=== PATIENT | male | born 1955 | race Caucasian/White ===

== ENCOUNTER 2017-12-22 13:47 | Inpatient (IN) | payer OTHER ==
[~2017-12-22] VITALS: Ht 182.9 cm; Wt 91.9 kg
[2017-12-22] MEDS ORDERED: SODIUM CHLORIDE 0.9% 1000ML 1,000 ML IV SCH (13:53)
--- NOTE | 2017-12-22 13:56 | EMERGENCY ROOM VISIT NOTE ---
History Report prepared by Roger: Cristofer Mckeon Under the Supervision of: Dr. Matthieu Jain D.O. First contact with patient: 13:50 Stated Complaint: CVA SYMPTOMS History of Present Illness The patient is a 62 year old male who presents to the Emergency Room with complaints of stroke like symptoms that the patient has been experiencing for two days. Per EMS, for the past two days the patient has been experiencing worsening facial droop of the right side, as well as poor coordination in the right side. When the patient walks he migrates to the left. He denies any pain, blurred vision, or recent headaches. The patient noted that he recently went to his PCP for muscle pain between his shoulders. He was given Prednisone, but this did not improve his condition. 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 A total of 10 systems reviewed and were otherwise negative. Past Medical & Surgical no past surgeries. Family History noncontributory due to adoption Social History Drug Use: none Marital Status: Housing Status: lives with significant other Current/Historical Medications Scheduled PRN Naproxen (Naprosyn), 1 TAB PO BID PRN for Pain Allergies Coded Allergies: No Known Allergies (Unverified , 12/22/17) Physical Exam Vital Signs Date Time Temp Pulse Resp B/P (MAP) Pulse Ox O2 Delivery O2 Flow Rate FiO2 12/22/17 15:33 65 13 183/104 94 Room Air 12/22/17 14:44 69 23 178/100 97 Room Air 12/22/17 14:17 76 12/22/17 13:54 37.0 79 193/110 99 Room Air 12/22/17 13:53 99 Room Air Physical Exam GENERAL: Patient is awake, alert, and in no acute distress. Patient is resting comfortably and showing no signs of anxiety EYES: The conjunctivae are clear. The pupils are round and reactive. EARS, NOSE, MOUTH AND THROAT: The nose is without any evidence of any deformity. Mucous membranes are moist tongue is midline NECK: The neck is nontender and supple. RESPIRATORY: Normal respiratory effort is noted there is no evidence of wheezing rhonchi or rales CARDIOVASCULAR: Regular rate and rhythm noted there no murmurs rubs or gallops normal S1 normal S2 GASTROINTESTINAL: The abdomen is soft. Bowel sounds are present in all quadrants. Abdomen is nontender MUSCULOSKELETAL/EXTREMITIES: There is no evidence of gross deformity full range of motion is noted in the hips and shoulders SKIN: There is no obvious evidence of any rash. There are no petechiae, pallor or cyanosis noted. NEUROLOGIC: Patient is awake alert and oriented x3. Patient has a right sided facial droop with forehead a sparing noted. Slight drift in the RUE. 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 Strength is symmetric in both lower extremities. Medical Decision & Procedures ER Provider Diagnostic Interpretation: Radiology results as stated below per my review and radiologist interpretation: CHEST ONE VIEW PORTABLE CLINICAL HISTORY: Stroke symptoms. COMPARISON STUDY: No previous studies for comparison. FINDINGS: Lung volumes are normal. No pneumothorax or pleural effusion is noted. Pulmonary vascularity is normal. No airspace opacities are present. Cardiomediastinal silhouette is normal. IMPRESSION: No acute cardiopulmonary findings. Electronically signed by: Edenilson Hughes M.D. 12/22/2017 2:21 PM Dictated Date/Time: 12/22/2017 2:[address] CT DOSE: 614.27 mGy.cm HISTORY: Stroke symptoms. TECHNIQUE: Multiaxial CT images of the head were performed without the use of intravenous contrast. Automated exposure control was utilized for this study. A dose lowering technique was utilized adhering to the principles of ALARA. Comparison: None. Findings: There is a 1 cm defect within the left nasal bone. This is nonspecific but could be due to old trauma or postoperative change. The paranasal sinuses and mastoid air cells are clear. The calvarium and skull base are intact. The ventricles and sulci are within normal limits. There is no mass, hematoma, midline shift, or acute infarct. Impression: No acute intracranial abnormality. Electronically signed by: Cecil Jackson M.D. 12/22/2017 2:25 PM Dictated Date/Time: 12/22/2017 2:20 PM Laboratory Results Test 12/22/17 14:29 12/22/17 14:46 Prothrombin Time 10.0 SECONDS (9.0-12.0) Prothromb Time International Ratio 1.0 (0.9-1.1) Activated Partial Thromboplast Time 23.8 SECONDS (21.0-31.0) Partial Thromboplastin Ratio 0.9 Estimated Average Glucose 272 mg/dl Hemoglobin A1c 11.1 % (4.5-5.6) Magnesium Level 2.0 mg/dl (1.8-2.4) Beta-Hydroxybutyric Acid 1.54 mg/dL (0.2-2.81) Lyme Disease IgG Antibody NEG (NEG) Lyme Disease IgM Antibody NEG (NEG) Urine Color YELLOW Urine Appearance CLEAR (CLEAR) Urine pH 5.0 (4.5-7.5) Urine Specific [place] 1.044 (1.000-1.030) Urine Protein NEG (NEG) Urine Glucose (UA) 3+ (NEG) Urine Ketones NEG (NEG) Urine Occult Blood NEG (NEG) Urine Nitrite NEG (NEG) Urine Bilirubin NEG (NEG) Urine Urobilinogen NEG (NEG) Urine Leukocyte Esterase NEG (NEG) Laboratory results per my review. Medications Administered Medications (Trade) Dose Ordered Sig/Mich Route Start Time Stop Time Status Last Admin Dose Admin Sodium Chloride 1,000 ml @ 50 mls/hr Q20H IV 12/22/17 13:53 12/22/17 20:13 DC 12/22/17 13:53 50 MLS/HR Sodium Chloride 1,000 ml @ 999 mls/hr Q1H1M STAT IV 12/22/17 15:17 12/22/17 16:17 DC 12/22/17 15:17 999 MLS/HR Aspirin (Aspirin Chew) 324 mg NOW STAT PO 12/22/17 16:33 12/22/17 16:34 DC 12/22/17 16:52 324 MG ECG Indication: weakness Rate (beats per minute): 69 Rhythm: normal sinus Findings: no ectopy, other (Diffuse t-wave abnormalities noted) Comparison ECG Date: no prior available Change: Patient's EKG was interpreted by me. ED Course 1348: The patient was evaluated in room B5. A complete history and physical examination were performed. 1353: Ordered 1000 mL @ 50 mL/hr IV. 1530: I discussed the patient's case with - [facility] hospitalist . The patient will be evaluated for further management. Medical Decision Differential diagnosis: Etiologies such as metabolic, infection, hypo/hyperglycemia, electrolyte abnormalities, cardiac sources, intracerebral event, toxicologic, neurologic, as well as others were entertained. Nursing notes reviewed. The patient is a 62-year-old male who presented to the emergency department by ambulance for right-sided weakness. The patient states that he's had a gradual onset over the last few days of right-sided weakness. He states that he's been falling to the left because he's been having weakness on his right side. The patient also noticed some speech difficulty and facial droop today. The patient' s history and physical exam appear to be consistent with a central nervous system process. He has right-sided facial droop with forehead sparing. He also appears to have some involvement of his upper extremity. The patient states he' s been having trouble walking however his strength appears symmetric in his lower extremities. I discussed the patient's laboratory and radiographic studies with him. He was treated with aspirin in the emergency department when CT revealed no acute disease. The patient was assigned to the [facility] hospitalist. They have agreed to evaluate the patient in the emergency department for further management and disposition. Consults Time Called: 1530 Consulting Physician: Dr. Ruel MOREL Hospitalist Returned Call: 1530 I discussed the patient's case with Dr.Kedem Catalina MOREL hospitalist . The patient will be evaluated for further management. Impression Primary Impression: Right sided weakness Additional Impressions: CVA (cerebral vascular accident) Facial droop Diabetes mellitus, new onset Scribe Attestation The scribe's documentation has been prepared under my direction and personally reviewed by me in its entirety. I confirm that the note above accurately reflects all work, treatment, procedures, and medical decision making performed by me. Departure Information Dispostion Being Evaluated By Hospitalist Problem Qualifiers Additional Impressions: CVA (cerebral vascular accident) CVA mechanism: unspecified Qualified Codes: I63.9 - Cerebral infarction, unspecified
--- NOTE | 2017-12-22 14:22 | DIAGNOSTIC IMAGING REPORT ---
CHEST ONE VIEW PORTABLE CLINICAL HISTORY: Stroke symptoms. COMPARISON STUDY: No previous studies for comparison. FINDINGS: Lung volumes are normal. No pneumothorax or pleural effusion is noted. Pulmonary vascularity is normal. No airspace opacities are present. Cardiomediastinal silhouette is normal. IMPRESSION: No acute cardiopulmonary findings. Electronically signed by: Edenilson Hughes M.D. 12/22/2017 2:21 PM Dictated Date/Time: 12/22/2017 2:21 PM
--- NOTE | 2017-12-22 14:26 | DIAGNOSTIC IMAGING REPORT ---
HEAD CT NONCONTRAST CT DOSE: 614.27 mGy.cm HISTORY: Stroke symptoms. TECHNIQUE: Multiaxial CT images of the head were performed without the use of intravenous contrast. Automated exposure control was utilized for this study. A dose lowering technique was utilized adhering to the principles of ALARA. Comparison: None. Findings: There is a 1 cm defect within the left nasal bone. This is nonspecific but could be due to old trauma or postoperative change. The paranasal sinuses and mastoid air cells are clear. The calvarium and skull base are intact. The ventricles and sulci are within normal limits. There is no mass, hematoma, midline shift, or acute infarct. Impression: No acute intracranial abnormality. Electronically signed by: Cecil Jackson M.D. 12/22/2017 2:25 PM Dictated Date/Time: 12/22/2017 2:20 PM
[2017-12-22 14:51] LABS: BASO % 0.4 %; BASO ABS # 0.03 K/uL (0-0.2); EOS % 1.3 %; EOS ABS # 0.11 K/uL (0-0.5); HEMATOCRIT 45.1 % (42-52); HEMOGLOBIN 16.1 g/dL (14.0-18.0); IG# 0.05 K/uL (0.00-0.02); LYMPH % 20.2 %; LYMPH ABS # 1.66 K/uL (1.2-3.4); MEAN CELL VOLUME 86.4 fL (80-100); MEAN CORPUSCULAR HEMOGLOBIN 30.8 pg (25-34); MEAN CORPUSCULAR HGB CONC 35.7 g/dl (32-36); MEAN PLATELET VOLUME 11.2 fL (7.4-10.4); MONO % 5.6 %; MONO ABS # 0.46 K/uL (0.11-0.59); NEUT % 71.9 %; NEUT ABS # 5.89 K/uL (1.4-6.5); PLATELET COUNT 171 K/uL (130-400); RED CELL DISTRIBUTION WIDTH SD 41.1 fL (36.4-46.3)
[2017-12-22 15:01] LABS: PTT PATIENT 23.8 SECONDS (21.0-31.0)
[2017-12-22 15:15] LABS: BLOOD UREA NITROGEN 14 mg/dl (7-18); CALCIUM 8.6 mg/dl (8.5-10.1); CARBON DIOXIDE 28 mmol/L (21-32); CKMB 2.8 ng/ml (0.5-3.6); CREATININE 1.03 mg/dl (0.60-1.40); GLUCOSE 351 mg/dl (70-99); POTASSIUM 3.7 mmol/L (3.5-5.1); SODIUM 134 mmol/L (136-145)
[2017-12-22] MEDS ORDERED: SODIUM CHLORIDE 0.9% 1000ML 1,000 ML IV STA (15:17)
[2017-12-22] MEDS ORDERED: NAPR-1169 PO (15:41)
[2017-12-22] MEDS ORDERED: PHARMACIST DISCHARGE MED REC CONSULT PRN (16:30)
[2017-12-22] MEDS ORDERED: POLYETHYLENE (MIRALAX) 17 GM PACK PO PRN (16:30)
[2017-12-22] MEDS ORDERED: ASPIRIN 81 MG CHEW PO STA (16:33)
--- NOTE | 2017-12-22 17:02 | History and Physical ---
History & Physical Date & Time of Service: Dec 22, 2017 at 16:12 Chief Complaint: Cva Symptoms Primary Care Physician: No Doctor, Assigned History of Present Illness Mr. Larsen is a 62 year old man here with complaints of gait disturbance and "drifting left" x2 days. Today he is having word finding difficulty, weakness on the right, facial droop, and slurred speech. He was given prednisone 12/13 x6 days for a lump and muscle spasm near his spine. He has been taking naproxen for the back pain but it has not helped. He is a patient of Dr. Shaw. ROS Constitutional: no chills, aches, sweats or fever Respiratory: no sob,cough, sputum, or wheezing Cardiac: no chest pain, palpitations, edema, orthopnea or lightheadedness GI: no abdominal pain, nausea, vomiting, diarrhea or constipation : no dysuria or hesitancy Extremities: no joint pain or weakness Skin: no rash All other systems reviewed and negative Pmhx: Raynaud's Family History He is adopted and is unsure of parents history, no significant history in children Social History Smoking Status: Never Smoker Smokeless Tobacco Use: No Alcohol Use: none Drug Use: none Marital Status: Housing status: lives with significant other 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 ) Immunizations History of Influenza Vaccine: No History of Tetanus Vaccine?: Yes Tetanus Immunization Date: Sep 29, 2017 History of Pneumococcal: No Allergies Coded Allergies: No Known Allergies (Unverified , 12/22/17) Home Medications Scheduled PRN Naproxen (Naprosyn), 1 TAB PO BID PRN for Pain Physical Exam Vital Signs Date Time Temp Pulse Resp B/P (MAP) Pulse Ox O2 Delivery O2 Flow Rate FiO2 12/22/17 15:33 65 13 183/104 94 Room Air 12/22/17 14:44 69 23 178/100 97 Room Air 12/22/17 14:17 76 12/22/17 13:54 37.0 79 193/110 99 Room Air 12/22/17 13:53 99 Room Air General: no distress Eyes: left eye lid lag, PERLL Respiratory: chest non tender, clear to auscultation, normal breath sounds, no respiratory distress, no accessory muscle use Cardiac: regular rate and rhythm, no rub or gallop, no murmur, no edema, no jvd GI/: active bowel sounds, no abd pain or tenderness, soft, non distended Extremities: normal range of motion, normal strength equal bilaterally, non tender, area of edema over thoracic spine - not erythematous or warm to touch Neuro/Psych: alert and oriented x 3, normal mood and affect, CN II-XII intact except for CN VII palsy causing facial droop Skin: normal color, dry Diagnostics Laboratory Results Results Past 24 Hours Test 12/22/17 13:53 12/22/17 14:29 12/22/17 14:31 Range/Units White Blood Count 8.20 4.8-10.8 K/uL Red Blood Count 5.22 4.7-6.1 M/uL Hemoglobin 16.1 14.0-18.0 g/dL Hematocrit 45.1 42-52 % Mean Corpuscular Volume 86.4 80-100 fL Mean Corpuscular Hemoglobin 30.8 25-34 pg Mean Corpuscular Hemoglobin Concent 35.7 32-36 g/dl Platelet Count 171 130-400 K/uL Mean Platelet Volume 11.2 7.4-10.4 fL Neutrophils (%) (Auto) 71.9 % Lymphocytes (%) (Auto) 20.2 % Monocytes (%) (Auto) 5.6 % Eosinophils (%) (Auto) 1.3 % Basophils (%) (Auto) 0.4 % Neutrophils # (Auto) 5.89 1.4-6.5 K/uL Lymphocytes # (Auto) 1.66 1.2-3.4 K/uL Monocytes # (Auto) 0.46 0.11-0.59 K/uL Eosinophils # (Auto) 0.11 0-0.5 K/uL Basophils # (Auto) 0.03 0-0.2 K/uL RDW Standard Deviation 41.1 36.4-46.3 fL RDW Coefficient of Variation 13.0 11.5-14.5 % Immature Granulocyte % (Auto) 0.6 % Immature Granulocyte # (Auto) 0.05 0.00-0.02 K/uL Prothrombin Time 10.0 9.0-12.0 SECONDS Prothromb Time International Ratio 1.0 0.9-1.1 Activated Partial Thromboplast Time 23.8 21.0-31.0 SECONDS Partial Thromboplastin Ratio 0.9 Sodium Level 134 136-145 mmol/L Potassium Level 3.7 3.5-5.1 mmol/L Chloride Level 101 98-107 mmol/L Carbon Dioxide Level 28 21-32 mmol/L Anion Gap 5.0 3-11 mmol/L Blood Urea Nitrogen 14 7-18 mg/dl Creatinine 1.03 0.60-1.40 mg/dl Est Creatinine Clear Calc Drug Dose 93.0 ml/min Estimated GFR () 91.1 Estimated GFR (Non- 78.6 BUN/Creatinine Ratio 13.9 10-20 Random Glucose 351 70-99 mg/dl Calcium Level 8.6 8.5-10.1 mg/dl Magnesium Level 2.0 1.8-2.4 mg/dl Total Creatine Kinase 115 39-308 U/L Creatine Kinase MB 2.8 0.5-3.6 ng/ml Creatine Kinase MB Ratio 2.4 0-3.0 Troponin I < 0.015 0-0.045 ng/ml Beta-Hydroxybutyric Acid 1.54 0.2-2.81 mg/dL Bedside Glucose 321 70-99 mg/dl Diagnostic Radiology CHEST ONE VIEW PORTABLE CLINICAL HISTORY: Stroke symptoms. COMPARISON STUDY: No previous studies for comparison. FINDINGS: Lung volumes are normal. No pneumothorax or pleural effusion is noted. Pulmonary vascularity is normal. No airspace opacities are present. Cardiomediastinal silhouette is normal. IMPRESSION: No acute cardiopulmonary findings HEAD CT NONCONTRAST CT DOSE: 614.27 mGy.cm HISTORY: Stroke symptoms. TECHNIQUE: Multiaxial CT images of the head were performed without the use of intravenous contrast. Automated exposure control was utilized for this study. A dose lowering technique was utilized adhering to the principles of ALARA. Comparison: None. Findings: There is a 1 cm defect within the left nasal bone. This is nonspecific but could be due to old trauma or postoperative change. The paranasal sinuses and mastoid air cells are clear. The calvarium and skull base are intact. The ventricles and sulci are within normal limits. There is no mass, hematoma, midline shift, or acute infarct. Impression: No acute intracranial abnormality. CXR normal EKG Normal sinus rhythm Voltage criteria for left ventricular hypertrophy Nonspecific ST and T wave abnormality Abnormal ECG No previous ECGs available Impression Assessment and Plan Mr. Larsen is a 62 year old man here for r/o cva R/o CVA - admit tele - MRI brain combo, MRA head, carotid US, echo - start ASA, statin - permissible htn until CVA r/o - trend cardiac isos - PT/OT, speech - consult neuro - Lyme titers negative Thoracic back pain/edema - MRI thoracic spine - acetaminophen prn Hyperglycemia - BSG over 300 in ED - patient denies history of DM - recently finished course of prednisone - A1c, bsg ac & hs - insulin ss HTN - permissible for now until CVA r/o DVT proph - enoxaprin Resident Physician Supervision Note: Pt evaluated independently. I discussed the case with the GENERAL PRODUCTION WORKER and agree with the findings and plan as documented in the note. Any exceptions or clarifications are listed here: 62 y/o M Hx HTN, likely undx DM - presenting with R sided weakness and facial asym x 2-3 days - symptoms were initially intermittent OE AAO x 3 S1,2 R CTAB NT, ND No CCE + mild R pronator drift - clear R facial weakness limited to lower half P: Admitted with CVA protocol - miryam also R/O Lyme MRI/MRA pending A1C pending and placed on SS HTN meds held due to acute tia/cva Documented By: Matteo Lipscomb Advanced Directives Existing Advance Directive: No Existing Living Will: No Existing Power of Jig Grinder: No Existing Health Care Proxy: No Resuscitation Status FULL RESUSCITATION
--- NOTE | 2017-12-22 17:52 | DIAGNOSTIC IMAGING REPORT ---
MR ANGIOGRAM OF THE BRAIN CLINICAL HISTORY: Strokelike symptoms. COMPARISON STUDY: CT of the brain dated 12/22/2017. TECHNIQUE: 3-D [id number] MR angiography of the intracranial circulation is performed. 3-D tumble views are created and assessed. IV contrast was not administered for this examination. FINDINGS: The internal carotid arteries are widely patent bilaterally, as are the anterior and middle cerebral arteries. The vertebrobasilar system and posterior cerebral arteries are widely patent. The vertebral arteries are codominant. There is no aneurysm, high-grade stenosis, or focal vessel cutoff seen throughout the intracranial circulation. The brain parenchyma is normal as visualized. IMPRESSION: Unremarkable MR angiogram of the brain. Electronically signed by: Sonny Mon M.D. 12/22/2017 5:51 PM Dictated Date/Time: 12/22/2017 5:49 PM
[2017-12-22] MEDS ORDERED: GADAVIST IV PRN (18:30)
--- NOTE | 2017-12-22 19:10 | DIAGNOSTIC IMAGING REPORT ---
MRI OF THE BRAIN WITHOUT AND WITH IV CONTRAST CLINICAL HISTORY: Stroke symptoms. Slurred speech. Difficulty walking. COMPARISON STUDY: Head CT performed earlier today. TECHNIQUE: Utilizing a 1.5 Radha magnet and dedicated coil, multiplanar, multiecho imaging of the brain was performed pre and postcontrast administration. IV administration of 10 mL of Gadavist contrast was uneventful. FINDINGS: Note is made of a 1.3 x 0.5 cm focus of restricted diffusion within the left anterior priscilla consistent with an acute infarct. There is no mass effect or evidence of hemorrhagic conversion. No additional acute infarcts are present. Ventricular system is unremarkable. Basilar cisterns are patent. Flow-voids for the major intracranial vessels are present. There is no intracranial mass or pathologic enhancement. A few suspected old lacunar infarcts are noted. Calvarial signal is maintained. IMPRESSION: Small acute left anterior pontine infarct. No mass effect or evidence for hemorrhagic conversion. Electronically signed by: Edenilson Hughes M.D. 12/22/2017 7:09 PM Dictated Date/Time: 12/22/2017 6:50 PM
[2017-12-22 19:30] VITALS: BP 197/91; PULSE 67; TEMP 37; O2SAT 98; BMI 27.6
--- NOTE | 2017-12-22 19:34 | DIAGNOSTIC IMAGING REPORT ---
ULTRASOUND OF THE CAROTID ARTERIES CLINICAL HISTORY: Stroke. COMPARISON STUDY: No priors. TECHNIQUE: Real-time, grayscale, and color Doppler sonography of the carotid arteries is performed. Images are reviewed in the transverse and longitudinal planes. FINDINGS: Blood pressure in the right arm measures 190/89 and blood pressure in the left arm measures 178/91. The carotid arteries are patent bilaterally and demonstrate antegrade flow. There is minimal atherosclerotic plaque identified. Normal doppler arterial waveforms are seen throughout. Velocity measurements are listed below. Common carotid peak systolic velocity (cm/sec): RIGHT: 112 LEFT: 144 ICA proximal peak systolic velocity (cm/sec): RIGHT: 59 LEFT: 44 ICA mid peak systolic velocity (cm/sec): RIGHT: 53 LEFT: 42 ICA distal peak systolic velocity (cm/sec): RIGHT: 53 LEFT: 47 ICA/CC peak systolic ratio: RIGHT: 0.5 LEFT: 0.3 Antegrade flow was shown in the vertebral arteries. The external carotid arteries are patent. IMPRESSION: 1. There is no sonographic evidence of hemodynamically significant stenosis in the right or left carotid arterial system. 2. Antegrade flow is shown in the vertebral arteries. Electronically signed by: Sonny Mon M.D. 12/22/2017 7:33 PM Dictated Date/Time: 12/22/2017 7:30 PM
[2017-12-22 19:45] VITALS: BP 197/91; PULSE 67; TEMP 37; O2SAT 98
[2017-12-22 20:00] VITALS: BP 179/104; PULSE 66; O2SAT 97
--- NOTE | 2017-12-22 20:10 | DIAGNOSTIC IMAGING REPORT ---
MRI OF THE THORACIC SPINE COMBO CLINICAL HISTORY: Palpable lump overlying the thoracic spine. Difficulty walking. COMPARISON STUDY: No priors. TECHNIQUE: MRI of the thoracic spine is performed utilizing various T1 and T2-weighted sequences in the axial and sagittal planes. Contrast-enhanced sequences were acquired following the IV administration of 10 cc of Gadavist. The examination is modestly degraded by motion artifact. FINDINGS: Vertebral body height and alignment are maintained throughout the thoracic spine. Normal marrow signal intensity is preserved throughout the visualized bony structures. No destructive osseous lesion is seen. A tiny hemangioma is suggested in the body of T11. The transverse and spinous processes are intact as visualized. No significant neural foraminal stenosis is seen throughout the thoracic spine. Minimal degenerative disc desiccation is observed. The disc spaces are maintained. No disc herniation is identified. The thoracic spinal cord is normal in morphology and signal intensity. The conus medullaris terminates at the level of L1. No abnormal enhancement is seen on the postcontrast images. There is a lobulated soft tissue lesion identified within the right paraspinous musculature at T3 to T5. This measures 6.1 x 1.7 x 3.6 cm. This follows fat on all sequences and is consistent with a lipoma. No enhancing lesion is seen. The paraspinous soft tissues are otherwise normal in appearance. The visualized lung parenchyma is grossly unremarkable but not well evaluated by MRI. IMPRESSION: 1. There is no disc herniation, central canal stenosis, or neural foraminal narrowing seen throughout the thoracic spine. 2. The thoracic spinal cord is normal in morphology and signal intensity. 3. No bony abnormality is seen. 4. 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 Dictated: 12/22/2017 6:50 PM Transcribed: 12/22/2017 8:10 PM HEMANT_Landy Electronically signed by: Sonny Mon M.D. 12/22/2017 8:18 PM Dictated Date/Time: 12/22/2017 6:50 PM
[2017-12-22] MEDS ORDERED: GLUCAGON FOR INJ 1 MG VIAL SQ PRN (20:30)
[2017-12-22] MEDS ORDERED: DEXTROSE 50% 50 ML SYR IV PRN (20:30)
[2017-12-22] MEDS ORDERED: GLUCOSE 10 TABS/TUBE PO PRN (20:30)
[2017-12-22] MEDS ORDERED: GLUCOSE 40% GEL 15 GM TUBE PO PRN (20:30)
[2017-12-22] MEDS: ENOXAPARIN 40 MG/0.4 ML SYR SQ SCH (20:57)
[2017-12-22] MEDS: INSULIN ASPART 100 UNITS/ML 3 ML PEN SC SCH (20:58)
[2017-12-22 23:17] LABS: CKMB 1.5 ng/ml (0.5-3.6)
[2017-12-22 23:51] VITALS: BP_SYST 179; BP_SYST 183; BP_DIAS 92; BP_DIAS 95; PULSE 64; TEMP 36.8; O2SAT 98
[2017-12-23] VITALS (10 sets, daily range): BP systolic 140–187; BP diastolic 66–105; PULSE 56–105; TEMP 36.5–37.1; O2SAT 93–99; BMI 28.0
[2017-12-23 06:35] LABS: HEMOGLOBIN A1C 11.1 % (4.5-5.6)
[2017-12-23 06:35] LABS: BASO % 0.6 %; BASO ABS # 0.04 K/uL (0-0.2); EOS % 3.4 %; EOS ABS # 0.24 K/uL (0-0.5); HEMATOCRIT 43.4 % (42-52); HEMOGLOBIN 14.9 g/dL (14.0-18.0); IG# 0.03 K/uL (0.00-0.02); LYMPH % 35.8 %; LYMPH ABS # 2.54 K/uL (1.2-3.4); MEAN CELL VOLUME 87.5 fL (80-100); MEAN CORPUSCULAR HGB CONC 34.3 g/dl (32-36); MEAN PLATELET VOLUME 11.1 fL (7.4-10.4); MONO % 8.7 %; MONO ABS # 0.62 K/uL (0.11-0.59); NEUT % 51.1 %; NEUT ABS # 3.62 K/uL (1.4-6.5); PLATELET COUNT 159 K/uL (130-400); RED CELL DISTRIBUTION WIDTH CV 13.1 % (11.5-14.5); RED CELL DISTRIBUTION WIDTH SD 42.1 fL (36.4-46.3); WHITE BLOOD COUNT 7.09 K/uL (4.8-10.8)
[2017-12-23 07:04] LABS: BLOOD UREA NITROGEN 16 mg/dl (7-18); CALCIUM 8.3 mg/dl (8.5-10.1); CARBON DIOXIDE 27 mmol/L (21-32); CHOLESTEROL 197 mg/dl (0-200); CREATININE 0.85 mg/dl (0.60-1.40); GLUCOSE 247 mg/dl (70-99); POTASSIUM 3.4 mmol/L (3.5-5.1); SODIUM 137 mmol/L (136-145)
[2017-12-23 07:08] LABS: CKMB 1.4 ng/ml (0.5-3.6); LDL CHOLESTEROL CALCULATED 106 mg/dl
[2017-12-23] MEDS: ASPIRIN 81 MG ECTAB PO SCH (08:31)
[2017-12-23] MEDS: ATORVASTATIN 40 MG TAB PO SCH (08:32)
[2017-12-23] MEDS: INSULIN ASPART 100 UNITS/ML 3 ML PEN SC SCH ×4 (08:36→21:30)
[2017-12-23] MEDS: INSULIN GLARGINE SOLOSTAR 100 UNITS/ML 3 ML PEN SC SCH ×2 (08:36→21:31)
[2017-12-23] MEDS ORDERED: LANTUS PER UNIT CHARGE SC SCH (09:00)
[2017-12-23] MEDS ORDERED: AMLODIPINE BESYLATE 5 MG TAB PO SCH (09:00)
[2017-12-23] MEDS ORDERED: OPTIRAY 320 IV PRN (09:45)
--- NOTE | 2017-12-23 09:59 | Neurology Consultation ---
Neurology Consultation Date of Consultation: Dec 23, 2017. Attending Physician: Matteo Lipscomb M.D. Primary Care Physician: No Doctor, Assigned Reason for Consultation: Consultation for strokelike symptoms History of Present Illness Source: patient, hospital records This is a 62-year-old male who presented with today symptoms of worsening balance. Also noted some slurred speech starting Wednesday. Noted changes in his handwriting and his right hand not working as well as it usually does. Patient and family denied any facial weakness or facial droop. No sensory changes. No weakness. No changes with swallowing or trouble getting words out. No changes in vision. No dizziness. Has never had symptoms like this before. Patient was not on antiplatelets at the time of this event. MRI of the brain report and images were reviewed by myself. Noted to have an acute left pontine ischemic stroke. MRA of the brain was unremarkable. Ultrasound of the carotids was unremarkable Total cholesterol 197, LDL 106, HDL 35, triglycerides 282. Hemoglobin A1c 11.1 On review of systems patient is noted poor baseline balance which she attributed to Raynaud's all though not sure if this is an official diagnosis or not. Patient denies any numbness in his lower extremities but does report that his feet are always cold. Reports muscle back spasms. Past Medical/Surgical History Medical Problems: (1) CVA (cerebral vascular accident) Status: Acute (2) Diabetes mellitus, new onset Status: Acute (3) Facial droop Status: Acute (4) Right sided weakness Status: Acute No known past medical history the patient admits that he has not followed up with primary care physician in many years. 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 Reports that he doesn't do any heavy lifting. No tobacco use. Alcohol use. No illegal drug use. Is and lives with his . Smokeless Tobacco Use: No Alcohol Use: none Drug Use: none Marital Status: Housing Status: lives with significant other Occupation Status: employed ([employer] ) Allergies Coded Allergies: No Known Allergies (Unverified , 12/22/17) Current Inpatient Medications Current Inpatient Medications Medications (Trade) Dose Ordered Sig/Mich Route Start Time Stop Time Status Last Admin Dose Admin Atorvastatin Calcium (Lipitor Tab) 40 mg QAM PO 12/23/17 09:00 01/22/18 08:59 12/23/17 08:32 40 MG Aspirin (Ecotrin Tab) 81 mg QAM PO 12/23/17 09:00 01/22/18 08:59 12/23/17 08:31 81 MG Miscellaneous Information (Pharmacist Discharge Med Rec Consult) 1 ea UD PRN N/A 12/22/17 16:30 01/21/18 16:29 Acetaminophen (Tylenol Tab) 650 mg Q4H PRN PO 12/22/17 16:30 01/21/18 16:29 Polyethylene (Miralax Powder Packet) 17 gm DAILY PRN PO 12/22/17 16:30 01/21/18 16:29 Insulin Aspart (novoLOG ASPART) SLIDING SCALE If C... ACHS SC 12/22/17 21:00 01/21/18 20:59 12/23/17 08:36 6 UNITS Enoxaparin Sodium (Lovenox Inj) 40 mg PM SQ 12/22/17 21:00 01/21/18 20:59 12/22/17 20:57 40 MG Gadobutrol (Gadavist) 10 mmol UD PRN IV 12/22/17 18:30 12/26/17 18:29 Glucose (Glucose 40% Gel) 15-30 GRAMS 15 GRAMS... UD PRN PO 12/22/17 20:30 01/21/18 20:29 Glucose (Glucose Chew Tab) 4-8 Tablets 4 Tabl... UD PRN PO 12/22/17 20:30 01/21/18 20:29 Dextrose (Dextrose 50% 50ML Syringe) 25-50ML OF 50% DW IV FOR... UD PRN IV 12/22/17 20:30 01/21/18 20:29 Glucagon (Glucagon Inj) 1 mg UD PRN SQ 12/22/17 20:30 01/21/18 20:29 Amlodipine Besylate (Norvasc Tab) 5 mg QAM PO 12/23/17 09:00 01/22/18 08:59 12/23/17 08:31 5 MG Insulin Glargine (Lantus Solostar Pen) 8 units BID SC 12/23/17 09:00 01/22/18 08:59 12/23/17 08:36 8 UNITS Review of Systems Complete ROS otherwise negative except for the above noted in HPI Physical Exam Vital Signs (Past 24 Hrs): Date Time Temp Pulse Resp B/P (MAP) Pulse Ox O2 Delivery O2 Flow Rate FiO2 12/23/17 07:19 36.5 58 20 164/97 (119) 97 Room Air 187/98 (127) 12/23/17 04:00 Room Air 12/23/17 03:46 36.7 60 16 184/97 (126) 98 Room Air 12/23/17 03:41 36.7 60 16 184/97 (126) 98 12/22/17 23:59 Room Air 12/22/17 23:51 36.8 64 16 183/95 (124) 98 Room Air 179/92 (121) 12/22/17 20:00 Room Air 12/22/17 20:00 66 18 179/104 (129) 97 Room Air 12/22/17 19:45 37.0 67 17 197/91 (126) 98 Room Air 12/22/17 19:30 37.0 67 17 197/91 (126) 98 Room Air 12/22/17 19:30 37.0 67 17 197/91 98 Room Air 12/22/17 15:33 65 13 183/104 94 Room Air 12/22/17 14:44 69 23 178/100 97 Room Air 12/22/17 14:17 76 12/22/17 13:54 37.0 79 193/110 99 Room Air 12/22/17 13:53 99 Room Air Gen.: Patient is alert and oriented in no acute distress lying in bed Heart: Regular rate and rhythm Extremities: No rashes noted. Multiple digits missing from hands and feet Neurological examination: Mental status: Patient is alert and oriented to person place and time. Able to give his own history. Attention concentration normal for the situation. Remote and recent memory intact Speech is fluent without any dysarthria or aphasia noted. (maybe some mild dysarthria and hesitation with repeating "No ifs ands or buts" Cranial nerves: Visual wilson intact to counting. Funduscopic examination was difficult to visualize. Pupils equally round and reactive to light. Extraocular muscles intact without nystagmus. No facial asymmetry noted. Facial sensation intact. Tongue midline. Good palatal elevation. Good shoulder shrug bilaterally. Hearing grossly intact voice. Strength: 5/5 both proximal and distal in all extremities .Tone is normal. Sensation: Grossly intact to light touch in all extremities. Mild swaying with Romberg testing. Deep tendon reflexes: +1 in bilateral biceps and patellar. Toes are equivocal to plantar stimulation bilaterally Coordination: Patient has good finger to nose without dysmetria. Gait was slightly wide-based. No ataxia noted. Appeared slightly unstable when turning around quickly. Laboratory Results Past 24 Hours: 12/23/17 06:20 Red Blood Count 4.96, Mean Corpuscular Volume 87.5, Mean Corpuscular Hemoglobin 30.0, Mean Corpuscular Hemoglobin Concent 34.3, Mean Platelet Volume 11.1, Neutrophils (%) (Auto) 51.1, Lymphocytes (%) (Auto) 35.8, Monocytes (%) (Auto) 8.7, Eosinophils (%) (Auto) 3.4, Basophils (%) (Auto) 0.6, Neutrophils # (Auto) 3.62, Lymphocytes # (Auto) 2.54, Monocytes # (Auto) 0.62, Eosinophils # (Auto) 0.24, Basophils # (Auto) 0.04 12/23/17 06:20 Test 12/22/17 14:29 12/22/17 14:46 12/23/17 06:20 12/23/17 06:36 Prothrombin Time 10.0 SECONDS (9.0-12.0) Prothromb Time International Ratio 1.0 (0.9-1.1) Activated Partial Thromboplast Time 23.8 SECONDS (21.0-31.0) Partial Thromboplastin Ratio 0.9 Estimated Average Glucose 272 mg/dl Hemoglobin A1c 11.1 % (4.5-5.6) Magnesium Level 2.0 mg/dl (1.8-2.4) Beta-Hydroxybutyric Acid 1.54 mg/dL (0.2-2.81) Lyme Disease IgG Antibody NEG (NEG) Lyme Disease IgM Antibody NEG (NEG) Urine Color YELLOW Urine Appearance CLEAR (CLEAR) Urine pH 5.0 (4.5-7.5) Urine Specific [place] 1.044 (1.000-1.030) Urine Protein NEG (NEG) Urine Glucose (UA) 3+ (NEG) Urine Ketones NEG (NEG) Urine Occult Blood NEG (NEG) Urine Nitrite NEG (NEG) Urine Bilirubin NEG (NEG) Urine Urobilinogen NEG (NEG) Urine Leukocyte Esterase NEG (NEG) White Blood Count 7.09 K/uL (4.8-10.8) Red Blood Count 4.96 M/uL (4.7-6.1) Hemoglobin 14.9 g/dL (14.0-18.0) Hematocrit 43.4 % (42-52) Mean Corpuscular Volume 87.5 fL (80-100) Mean Corpuscular Hemoglobin 30.0 pg (25-34) Mean Corpuscular Hemoglobin Concent 34.3 g/dl (32-36) Platelet Count 159 K/uL (130-400) Mean Platelet Volume 11.1 fL (7.4-10.4) Neutrophils (%) (Auto) 51.1 % Lymphocytes (%) (Auto) 35.8 % Monocytes (%) (Auto) 8.7 % Eosinophils (%) (Auto) 3.4 % Basophils (%) (Auto) 0.6 % Neutrophils # (Auto) 3.62 K/uL (1.4-6.5) Lymphocytes # (Auto) 2.54 K/uL (1.2-3.4) Monocytes # (Auto) 0.62 K/uL (0.11-0.59) Eosinophils # (Auto) 0.24 K/uL (0-0.5) Basophils # (Auto) 0.04 K/uL (0-0.2) RDW Standard Deviation 42.1 fL (36.4-46.3) RDW Coefficient of Variation 13.1 % (11.5-14.5) Immature Granulocyte % (Auto) 0.4 % Immature Granulocyte # (Auto) 0.03 K/uL (0.00-0.02) Anion Gap 7.0 mmol/L (3-11) Est Creatinine Clear Calc Drug Dose 109.9 ml/min Estimated GFR () 109.8 Estimated GFR (Non- 94.7 BUN/Creatinine Ratio 18.3 (10-20) Calcium Level 8.3 mg/dl (8.5-10.1) Total Creatine Kinase 75 U/L (39-308) Creatine Kinase MB 1.4 ng/ml (0.5-3.6) Creatine Kinase MB Ratio 1.9 (0-3.0) Troponin I < 0.015 ng/ml (0-0.045) Triglycerides Level 282 mg/dl (0-150) Cholesterol Level 197 mg/dl (0-200) HDL Cholesterol 35 mg/dl LDL Cholesterol, Calculated 106 mg/dl VLDL Cholesterol, Calculated 56 mg/dl Cholesterol/HDL Ratio 5.6 Bedside Glucose 229 mg/dl (70-99) Imaging As noted above in history of present illness Impression This is a 62-year-old male who presents with an acute left pontine ischemic stroke. Residual neurological deficits of minimal dysarthria and gait dysfunction. I suspect that he likely has some component of peripheral neuropathy from diabetes contributing to baseline poor balance. Known stroke risk factors at this time include untreated diabetes and mild dyslipidemia. Suspect that he may also have some baseline hypertension. Plan Agree with initiation of aspirin 81 mg daily and statin medication for secondary stroke prevention I have ordered a CTA of his neck to complete stroke workup to evaluate or rule out any critical stenosis in the posterior circulation. Follow-up echocardiogram results to rule out cardiac embolic sources for stroke Agree with treating diabetes and diabetic adult education instructor Discussed with patient that he absolutely needs to establish with a primary care physician to manage chronic medical problems. Follow-up PT/OT and speech therapies for discharge planning. Anticipate that he will only need outpatient therapies Blood pressure recommendations while in hospital 175/95-150/80 (MAPS 90-110) Avoid hypotension and dehydration Stroke risk factor modifications and recommendations: Blood pressure recommendations for the first month post hospital discharge 150/ 90-130/80, and after that blood pressure recommendations 130/80-110/70 Total cholesterol goal 100- 200 and LDL goal less than 70 Hemoglobin A1c goal less than 7 Encourage cardiovascular exercise at least 3 times a week for 30 minutes. Follow-up in neurology clinic in 1 month for post stroke hospital follow-up. If there is any questions or concerns, feel free to call/page me.
--- NOTE | 2017-12-23 10:07 | Medical Student: [facility] ---
Med Student History & Physical Date & Time of Service: Dec 23, 2017 at 08:48 Chief Complaint: CVA Primary Care Physician: No Doctor, Assigned History of Present Illness Source: patient, spouse, hospital records Pt is a 62 year old R handed M who presents with 2 days of gait disturbance and dysarthria. Neurology consulted for stroke. Pt noticed on Wednesday that he was drifting to the left more than normal while walking. Pt did note at baseline that he does have chronic balance issues which he believes are due to his Raynaud's in his legs. On Wednesday, his speech became mildly dysarthric and someone at work noticed a right facial droop. EMS was called and he was brought to the ED. During the past 2 days, the pt denied any acute muscle weakness, numbness, tingling, OLIVIER, vision changes or difficulty swallowing. He does have chronic R arm weakness with associated pain due to back spasms. He isn't sure if it got weaker during the past 2 days, but he did note his handwriting had gotten worse. He has no hx of stroke or cardiac disease. Before this hospitalization, he also had no hx of DM, but was found to have a A1c of 11.1 and blood glucose of >400. He has not seen a family care provider in a long time and does not take any chronic prescribed meds. Hospital MRI shows a small acute L anterior pontine infarct. MRA of head was unremarkable. Carotid u/s did not show any significant stenosis. Currently, the pt feels that his walking is back to a "shakey" baseline. Pt can tell that he's still slurring some words, and it is about the same as before. He is particularly distressed about this dysarthria. Past Medical/Surgical History Medical Problems: (1) CVA (cerebral vascular accident) Status: Acute (2) Diabetes mellitus, new onset Status: Acute (3) Facial droop Status: Acute (4) Right sided weakness Status: Acute Pt has a hx of Raynaud's disease. 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 Family History Pt is adopted and doesn't know about parents' medical history. No significant history in his children. Social History Smoking Status: Never Smoker Smokeless Tobacco Use: No Alcohol Use: none Drug Use: none Marital Status: Housing status: lives with significant other Occupational Status: employed ([employer] ) Immunizations History of Influenza Vaccine: No History of Tetanus Vaccine?: Yes Tetanus Immunization Date: Sep 29, 2017 History of Pneumococcal: No Allergies Coded Allergies: No Known Allergies (Unverified , 12/22/17) Medications Naproxen (Naprosyn), 1 TAB PO BID PRN for Pain Review of Systems Constitutional: No fever Eyes: No worsening of vision, No diplopia ENT: No tinnitus Respiratory: No cough, No sputum Cardiovascular: No chest pain Abdomen: No nausea, No vomiting Neurologic: No weakness, No numbness/tingling, No vertigo Psychiatric: + depression symptoms Physical Exam Vital Signs (24 Hours) Date Time Temp Pulse Resp B/P (MAP) Pulse Ox O2 Delivery O2 Flow Rate FiO2 12/23/17 07:19 36.5 58 20 164/97 (119) 97 Room Air 187/98 (127) 12/23/17 04:00 Room Air 12/23/17 03:46 36.7 60 16 184/97 (126) 98 Room Air 12/23/17 03:41 36.7 60 16 184/97 (126) 98 12/22/17 23:59 Room Air 12/22/17 23:51 36.8 64 16 183/95 (124) 98 Room Air 179/92 (121) 12/22/17 20:00 Room Air 12/22/17 20:00 66 18 179/104 (129) 97 Room Air 12/22/17 19:45 37.0 67 17 197/91 (126) 98 Room Air 12/22/17 19:30 37.0 67 17 197/91 (126) 98 Room Air 12/22/17 19:30 37.0 67 17 197/91 98 Room Air 12/22/17 15:33 65 13 183/104 94 Room Air 12/22/17 14:44 69 23 178/100 97 Room Air 12/22/17 14:17 76 12/22/17 13:54 37.0 79 193/110 99 Room Air 12/22/17 13:53 99 Room Air Neuro Exam: Mental Status: the pt is alert, attentive and oriented. Normal mood and affect. Speech is clear and fluent with good repetition, comprehension and naming. Very mild dysarthria occasionally present. Knowledge level appropriate. Memory intact. 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 Strength is 5/5 in the hip flexors, quadriceps, plantar flexors and dorsi flexors bilaterally. Reflexes: 1+ in biceps, triceps, biceps, brachioradialis, quadriceps, and Achilles tendons bilaterally Babinski reflex is absent Sensory: light touch and temperature symmetric b/l in UE and LE. Vibration sensation diminished in b/l LE. Coordination: Patient had good FTN and HTS without dysmetria Gait: Mild sway with Romberg. Gait is unsteady, with mild drift to the right, and difficulty with turning. Diagnostics Laboratory Results Results Past 24 Hours Test 12/22/17 14:29 12/22/17 14:31 12/22/17 14:46 12/22/17 20:33 Range/Units White Blood Count 8.20 4.8-10.8 K/uL Red Blood Count 5.22 4.7-6.1 M/uL Hemoglobin 16.1 14.0-18.0 g/dL Hematocrit 45.1 42-52 % Mean Corpuscular Volume 86.4 80-100 fL Mean Corpuscular Hemoglobin 30.8 25-34 pg Mean Corpuscular Hemoglobin Concent 35.7 32-36 g/dl Platelet Count 171 130-400 K/uL Mean Platelet Volume 11.2 7.4-10.4 fL Neutrophils (%) (Auto) 71.9 % Lymphocytes (%) (Auto) 20.2 % Monocytes (%) (Auto) 5.6 % Eosinophils (%) (Auto) 1.3 % Basophils (%) (Auto) 0.4 % Neutrophils # (Auto) 5.89 1.4-6.5 K/uL Lymphocytes # (Auto) 1.66 1.2-3.4 K/uL Monocytes # (Auto) 0.46 0.11-0.59 K/uL Eosinophils # (Auto) 0.11 0-0.5 K/uL Basophils # (Auto) 0.03 0-0.2 K/uL RDW Standard Deviation 41.1 36.4-46.3 fL RDW Coefficient of Variation 13.0 11.5-14.5 % Immature Granulocyte % (Auto) 0.6 % Immature Granulocyte # (Auto) 0.05 0.00-0.02 K/uL Prothrombin Time 10.0 9.0-12.0 SECONDS Prothromb Time International Ratio 1.0 0.9-1.1 Activated Partial Thromboplast Time 23.8 21.0-31.0 SECONDS Partial Thromboplastin Ratio 0.9 Sodium Level 134 136-145 mmol/L Potassium Level 3.7 3.5-5.1 mmol/L Chloride Level 101 98-107 mmol/L Carbon Dioxide Level 28 21-32 mmol/L Anion Gap 5.0 3-11 mmol/L Blood Urea Nitrogen 14 7-18 mg/dl Creatinine 1.03 0.60-1.40 mg/dl Est Creatinine Clear Calc Drug Dose 93.0 ml/min Estimated GFR () 91.1 Estimated GFR (Non- 78.6 BUN/Creatinine Ratio 13.9 10-20 Random Glucose 351 70-99 mg/dl Estimated Average Glucose 272 mg/dl Hemoglobin A1c 11.1 4.5-5.6 % Calcium Level 8.6 8.5-10.1 mg/dl Magnesium Level 2.0 1.8-2.4 mg/dl Total Creatine Kinase 115 39-308 U/L Creatine Kinase MB 2.8 0.5-3.6 ng/ml Creatine Kinase MB Ratio 2.4 0-3.0 Troponin I < 0.015 0-0.045 ng/ml Beta-Hydroxybutyric Acid 1.54 0.2-2.81 mg/dL Lyme Disease IgG Antibody NEG NEG Lyme Disease IgM Antibody NEG NEG Bedside Glucose 321 204 70-99 mg/dl Urine Color YELLOW Urine Appearance CLEAR CLEAR Urine pH 5.0 4.5-7.5 Urine Specific [place] 1.044 1.000-1.030 Urine Protein NEG NEG Urine Glucose (UA) 3+ NEG Urine Ketones NEG NEG Urine Occult Blood NEG NEG Urine Nitrite NEG NEG Urine Bilirubin NEG NEG Urine Urobilinogen NEG NEG Urine Leukocyte Esterase NEG NEG Test 12/22/17 22:18 12/23/17 06:20 12/23/17 06:36 Range/Units Total Creatine Kinase 86 75 39-308 U/L Creatine Kinase MB 1.5 1.4 0.5-3.6 ng/ml Creatine Kinase MB Ratio 1.7 1.9 0-3.0 Troponin I < 0.015 < 0.015 0-0.045 ng/ml White Blood Count 7.09 4.8-10.8 K/uL Red Blood Count 4.96 4.7-6.1 M/uL Hemoglobin 14.9 14.0-18.0 g/dL Hematocrit 43.4 42-52 % Mean Corpuscular Volume 87.5 80-100 fL Mean Corpuscular Hemoglobin 30.0 25-34 pg Mean Corpuscular Hemoglobin Concent 34.3 32-36 g/dl Platelet Count 159 130-400 K/uL Mean Platelet Volume 11.1 7.4-10.4 fL Neutrophils (%) (Auto) 51.1 % Lymphocytes (%) (Auto) 35.8 % Monocytes (%) (Auto) 8.7 % Eosinophils (%) (Auto) 3.4 % Basophils (%) (Auto) 0.6 % Neutrophils # (Auto) 3.62 1.4-6.5 K/uL Lymphocytes # (Auto) 2.54 1.2-3.4 K/uL Monocytes # (Auto) 0.62 0.11-0.59 K/uL Eosinophils # (Auto) 0.24 0-0.5 K/uL Basophils # (Auto) 0.04 0-0.2 K/uL RDW Standard Deviation 42.1 36.4-46.3 fL RDW Coefficient of Variation 13.1 11.5-14.5 % Immature Granulocyte % (Auto) 0.4 % Immature Granulocyte # (Auto) 0.03 0.00-0.02 K/uL Sodium Level 137 136-145 mmol/L Potassium Level 3.4 3.5-5.1 mmol/L Chloride Level 104 98-107 mmol/L Carbon Dioxide Level 27 21-32 mmol/L Anion Gap 7.0 3-11 mmol/L Blood Urea Nitrogen 16 7-18 mg/dl Creatinine 0.85 0.60-1.40 mg/dl Est Creatinine Clear Calc Drug Dose 109.9 ml/min Estimated GFR () 109.8 Estimated GFR (Non- 94.7 BUN/Creatinine Ratio 18.3 10-20 Random Glucose 247 70-99 mg/dl Calcium Level 8.3 8.5-10.1 mg/dl Triglycerides Level 282 0-150 mg/dl Cholesterol Level 197 0-200 mg/dl HDL Cholesterol 35 mg/dl LDL Cholesterol, Calculated 106 mg/dl VLDL Cholesterol, Calculated 56 mg/dl Cholesterol/HDL Ratio 5.6 Bedside Glucose 229 70-99 mg/dl Diagnostic Radiology HEAD CT NONCONTRAST CT DOSE: 614.27 mGy.cm HISTORY: Stroke symptoms. TECHNIQUE: Multiaxial CT images of the head were performed without the use of intravenous contrast. Automated exposure control was utilized for this study. A dose lowering technique was utilized adhering to the principles of ALARA. Comparison: None. Findings: There is a 1 cm defect within the left nasal bone. This is nonspecific but could be due to old trauma or postoperative change. The paranasal sinuses and mastoid air cells are clear. The calvarium and skull base are intact. The ventricles and sulci are within normal limits. There is no mass, hematoma, midline shift, or acute infarct. Impression: No acute intracranial abnormality. CHEST ONE VIEW PORTABLE CLINICAL HISTORY: Stroke symptoms. COMPARISON STUDY: No previous studies for comparison. FINDINGS: Lung volumes are normal. No pneumothorax or pleural effusion is noted. Pulmonary vascularity is normal. No airspace opacities are present. Cardiomediastinal silhouette is normal. IMPRESSION: No acute cardiopulmonary findings. MRI OF THE THORACIC SPINE COMBO CLINICAL HISTORY: Palpable lump overlying the thoracic spine. Difficulty walking. COMPARISON STUDY: No priors. TECHNIQUE: MRI of the thoracic spine is performed utilizing various T1 and T2-weighted sequences in the axial and sagittal planes. Contrast-enhanced sequences were acquired following the IV administration of 10 cc of Gadavist. The examination is modestly degraded by motion artifact. FINDINGS: Vertebral body height and alignment are maintained throughout the thoracic spine. Normal marrow signal intensity is preserved throughout the visualized bony structures. No destructive osseous lesion is seen. A tiny hemangioma is suggested in the body of T11. The transverse and spinous processes are intact as visualized. No significant neural foraminal stenosis is seen throughout the thoracic spine. Minimal degenerative disc desiccation is observed. The disc spaces are maintained. No disc herniation is identified. The thoracic spinal cord is normal in morphology and signal intensity. The conus medullaris terminates at the level of L1. No abnormal enhancement is seen on the postcontrast images. There is a lobulated soft tissue lesion identified within the right paraspinous musculature at T3 to T5. This measures 6.1 x 1.7 x 3.6 cm. This follows fat on all sequences and is consistent with a lipoma. No enhancing lesion is seen. The paraspinous soft tissues are otherwise normal in appearance. The visualized lung parenchyma is grossly unremarkable but not well evaluated by MRI. IMPRESSION: 1. There is no disc herniation, central canal stenosis, or neural foraminal narrowing seen throughout the thoracic spine. 2. The thoracic spinal cord is normal in morphology and signal intensity. 3. No bony abnormality is seen. 4. 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 MR ANGIOGRAM OF THE BRAIN CLINICAL HISTORY: Strokelike symptoms. COMPARISON STUDY: CT of the brain dated 12/22/2017. TECHNIQUE: 3-D [id number] MR angiography of the intracranial circulation is performed. 3-D tumble views are created and assessed. IV contrast was not administered for this examination. FINDINGS: The internal carotid arteries are widely patent bilaterally, as are the anterior and middle cerebral arteries. The vertebrobasilar system and posterior cerebral arteries are widely patent. The vertebral arteries are codominant. There is no aneurysm, high-grade stenosis, or focal vessel cutoff seen throughout the intracranial circulation. The brain parenchyma is normal as visualized. IMPRESSION: Unremarkable MR angiogram of the brain. ULTRASOUND OF THE CAROTID ARTERIES CLINICAL HISTORY: Stroke. COMPARISON STUDY: No priors. TECHNIQUE: Real-time, grayscale, and color Doppler sonography of the carotid arteries is performed. Images are reviewed in the transverse and longitudinal planes. FINDINGS: Blood pressure in the right arm measures 190/89 and blood pressure in the left arm measures 178/91. The carotid arteries are patent bilaterally and demonstrate antegrade flow. There is minimal atherosclerotic plaque identified. Normal doppler arterial waveforms are seen throughout. Velocity measurements are listed below. Common carotid peak systolic velocity (cm/sec): RIGHT: 112 LEFT: 144 ICA proximal peak systolic velocity (cm/sec): RIGHT: 59 LEFT: 44 ICA mid peak systolic velocity (cm/sec): RIGHT: 53 LEFT: 42 ICA distal peak systolic velocity (cm/sec): RIGHT: 53 LEFT: 47 ICA/CC peak systolic ratio: RIGHT: 0.5 LEFT: 0.3 Antegrade flow was shown in the vertebral arteries. The external carotid arteries are patent. IMPRESSION: 1. There is no sonographic evidence of hemodynamically significant stenosis in the right or left carotid arterial system. 2. Antegrade flow is shown in the vertebral arteries. MRI OF THE BRAIN WITHOUT AND WITH IV CONTRAST CLINICAL HISTORY: Stroke symptoms. Slurred speech. Difficulty walking. COMPARISON STUDY: Head CT performed earlier today. TECHNIQUE: Utilizing a 1.5 Radha magnet and dedicated coil, multiplanar, multiecho imaging of the brain was performed pre and postcontrast administration. IV administration of 10 mL of Gadavist contrast was uneventful. FINDINGS: Note is made of a 1.3 x 0.5 cm focus of restricted diffusion within the left anterior priscilla consistent with an acute infarct. There is no mass effect or evidence of hemorrhagic conversion. No additional acute infarcts are present. Ventricular system is unremarkable. Basilar cisterns are patent. Flow-voids for the major intracranial vessels are present. There is no intracranial mass or pathologic enhancement. A few suspected old lacunar infarcts are noted. Calvarial signal is maintained. IMPRESSION: Small acute left anterior pontine infarct. No mass effect or evidence for hemorrhagic conversion. CXR normal Normal EKG Impression Assessment and Plan Pt is a 62 year old R handed M who presents with 2 days of gait disturbance and 1 day onset of minimal dysarthria and facial droop. Neurology consulted for stroke. Pt denied any issues with numbness, acute muscle weakness, OLIVIER, or vision changes. MRI confirms a small acute left anterior pontine infarct. MRA was unremarkable and carotid u/s did not show any significant stenosis. Currently, the pt feels that his walking is back to a "shakey" baseline. Pt can tell that he's still slurring some words, and it is about the same as before. Facial droop is not present. Pt's gait disturbance may be due to multiple factors including the acute stroke , Raynaud's and diabetic peripheral neuropathy. Plan 1. Acute stroke a) Reduce risk factors -Pt currently is hypertensive in hospital, but does believe he has elevated BP at baseline. Consider antihypertensive medication at discharge or outpatient followup -DM: Pt should be discharged on DM medication, and speak with a DM educator with regards to diet and exercise -Hypercholesterolemia: Pt's LDL is 106. With DM and stroke, want LDL <70. Consider statin. -Pt's new dx conditions should be followed by a PCP in outpatient b) PT/OT consultation - likely will be outpatient rehab c) Depression - pt is very upset about his dysarthria. As of now, pt does want any antidepressant medication 2. Chronic gait disturbance a) Consider outpatient EMG to work up for possible diabetic peripheral neuropathy. Neurology attending addendum: Patient was seen and evaluated with medical student. Please see my separate neurology consult note for full evaluation and recommendations. -Anika Mclaughlin, DO Advanced Directives Existing Advance Directive: No Existing Living Will: No Existing Power of Referral And Information Aide: No Existing Health Care Proxy: No
--- NOTE | 2017-12-23 10:16 | ECHOCARDIOGRAM REPORT ---
*NOTICE TO RECEIVING REPUBLICAN AGENCY This information is strictly Confidential and protected under [place] law. [place] law prohibits you from making any further disclosure of this information unless further disclosure is expressly permitted by the written consent of the person to whom it pertains or is authorized by law. A general authorization for the release of medical or other information is not sufficient for this purpose. Hospital accepts no responsibility if the information is made available to any other person, INCLUDING THE PATIENT. Interpretation Summary * Name: LUIS ROBB Study Date: 12/23/2017 06:39 AM BP: 187/98 mmHg * Patient Location: C.2T\S\E220\S\1 HR: 58 * : 1955 (M/d/yyyy) Gender: Male Height: 72 in * Age: 62 yrs Ethnicity: CA Weight: 218 lb * Ordering Physician: Rimma Serrano * Referring Physician: Self, Referred * Performed By: Romina Pedersen RCS * * Reason For Study: R/O CVA * BSA: 2.2 m2 * -- Conclusions -- * 1. Normal LV size. Mild concentric LVH we. * 2. Normal LV systolic function. LVEF 55-60%. No regional wall motion abnormalities. * 3. Normal RV size and function. * 4. No significant valvular pathology. * 5. Grade 2 diastolic dysfunction * 6. Positive saline contrast study for interatrial shunt consistent with PFO. * 7. No prior studies for comparison. Procedure Details * A complete two-dimensional transthoracic echocardiogram was performed (2D, M-mode, Doppler and color flow Doppler). * A saline contrast injection was performed to assess for cardiac shunting. * The injection was performed through an intravenous line in the left arm. * The attending nurse who injected the saline contrast was NEVILLE CASTELLANO, SANDI. * A total of 30 cc of agitated saline was given. Left Ventricle * The left ventricle is grossly normal size. * There is mild concentric left ventricular hypertrophy. * Ejection Fraction = 55-60%. * No regional wall motion abnormalities noted. Right Ventricle * The right ventricle is grossly normal size. * The right ventricular systolic function is normal as assessed by tricuspid annular plane systolic excursion (TAPSE) (normal >1.5 cm). Atria * Borderline left atrial enlargement. * Right atrial size is normal. * Injection of contrast documented an interatrial shunt. Mitral Valve * The mitral valve is grossly normal. * There is no mitral valve stenosis. * There is trace mitral regurgitation. Tricuspid Valve * The tricuspid valve is not well visualized, but is grossly normal. * There is no tricuspid stenosis. * There is trace tricuspid regurgitation. Aortic Valve * The aortic valve opens well. * The aortic valve is trileaflet. * No hemodynamically significant valvular aortic stenosis. * There is no significant aortic regurgitation. Pulmonic Valve * The pulmonary valve is inadequately visualized, but the Doppler data is adequate for interpretation. * There is no pulmonic valvular stenosis. * Trace pulmonic valvular regurgitation. Great Vessels * The aortic root and proximal ascending aorta are normal sized. Pericardium/Pleural * There is no pericardial effusion. Great Vessels * Normal inferior vena cava size and collapsability with sniff indicates a normal right atrial pressure of 3 mmHg Left Ventricular Diastolic Function * Diastolic dysfunction, Grade II (pseudonormalization pattern). MMode 2D Measurements and Calculations IVSd 1.3 cm IVSs 1.6 cm LVIDd 4.5 cm LVIDs 3.1 cm LVPWd 1.4 cm LVPWs 1.4 cm IVS/LVPW 0.93 FS 30.3 % EDV(Teich) 92.1 ml ESV(Teich) 38.9 ml EF(Teich) 57.8 % EDV(cubed) 90.7 ml ESV(cubed) 30.8 ml EF(cubed) 66.1 % % IVS thick 20.1 % % LVPW thick 2.6 % LV mass(C)d 235.8 grams LV mass(C)dI 106.7 grams/m\S\2 LV mass(C)s 167.6 grams LV mass(C)sI 75.9 grams/m\S\2 SV(Teich) 53.2 ml SI(Teich) 24.1 ml/m\S\2 SV(cubed) 60.0 ml SI(cubed) 27.1 ml/m\S\2 Ao root diam 3.1 cm Ao root area 7.6 cm\S\2 ACS 2.0 cm LA dimension 4.0 cm LA/Ao 1.3 LVOT diam 2.0 cm LVOT area 3.2 cm\S\2 LVAd ap4 32.1 cm\S\2 LVLd ap4 7.7 cm EDV(MOD-sp4) 108.2 ml EDV(sp4-el) 113.7 ml LVAs ap4 17.3 cm\S\2 LVLs ap4 6.2 cm ESV(MOD-sp4) 38.6 ml ESV(sp4-el) 41.0 ml EF(MOD-sp4) 64.4 % EF(sp4-el) 63.9 % LVAd ap2 36.2 cm\S\2 LVLd ap2 7.9 cm EDV(MOD-sp2) 134.5 ml EDV(sp2-el) 141.1 ml LVAs ap2 20.9 cm\S\2 LVLs ap2 6.2 cm ESV(MOD-sp2) 58.0 ml ESV(sp2-el) 60.5 ml EF(MOD-sp2) 56.9 % EF(sp2-el) 57.2 % LVLd %diff 2.1 % EDV(MOD-bp) 123.4 ml LVLs %diff -0.89 % ESV(MOD-bp) 47.5 ml EF(MOD-bp) 61.5 % SV(MOD-sp4) 69.6 ml SI(MOD-sp4) 31.5 ml/m\S\2 SV(MOD-sp2) 76.5 ml SI(MOD-sp2) 34.6 ml/m\S\2 SV(MOD-bp) 75.9 ml SI(MOD-bp) 34.3 ml/m\S\2 SV(sp4-el) 72.6 ml SI(sp4-el) 32.9 ml/m\S\2 SV(sp2-el) 80.7 ml SI(sp2-el) 36.5 ml/m\S\2 Doppler Measurements and Calculations MV E max rica 84.7 cm/sec MV A max rica 60.4 cm/sec MV E/A 1.4 MV P1/2t max rica 82.0 cm/sec MV P1/2t 94.6 msec MVA(P1/2t) 2.3 cm\S\2 MV dec slope 253.9 cm/sec\S\2 MV dec time 0.32 sec Ao V2 max 122.5 cm/sec Ao max PG 6.0 mmHg Ao max PG (full) 3.5 mmHg DEBBIE(V,A) 2.1 cm\S\2 DEBBIE(V,D) 2.1 cm\S\2 LV V1 max PG 2.5 mmHg LV V1 max 79.3 cm/sec MR max rica 637.5 cm/sec MR max PG 162.6 mmHg PA V2 max 110.4 cm/sec PA max PG 4.9 mmHg PI max rica 179.5 cm/sec PI max PG 12.9 mmHg PI dec slope 198.3 cm/sec\S\2 PI P1/2t 265.1 msec
--- NOTE | 2017-12-23 11:09 | DIAGNOSTIC IMAGING REPORT ---
NECK ANGIO WITH CONTRAST HISTORY: Mental status change stroke TECHNIQUE: Multiaxial CT images of the neck were performed following the intravenous administration of contrast to evaluate the major cervical vessels. Maximum intensity projection images were also obtained. All measurements were calculated based on NASCET criteria. A dose lowering technique was utilized adhering to the principles of ALARA. COMPARISON STUDY: None. FINDINGS: The aortic arch and proximal great vessels are widely patent. There is no significant stenosis, occlusion, or dissection identified within the bilateral common carotid, internal carotid, or vertebral arteries. No significant stenotic process. Minimal scattered atherosclerotic change of the vertebral basilar system. IMPRESSION: No significant stenosis, occlusion, or dissection identified within the carotid or vertebral arteries. Minimal atherosclerotic change of the vertebral basilar system. The above report was generated using voice recognition software. It may contain grammatical, syntax or spelling errors. Electronically signed by: Taye Weiner M.D. 12/23/2017 11:07 AM Dictated Date/Time: 12/23/2017 11:06 AM
--- NOTE | 2017-12-23 16:47 | Progress Note ---
Subjective Date of Service: Dec 23, 2017. Subjective pt is doing well, has little to no residual deficit, is being understanding about his diabetes, is willing to try insulin injections and diet modification with probable glucophage once iv contrast restriction is passed He continues to complain about back pain perhaps related to lipoma seen on imaging, but also may seem to be related to cervical spine, that is the one area we did not evaluate on his multiple imaging performed Problem List Medical Problems: (1) CVA (cerebral vascular accident) Status: Acute (2) Diabetes mellitus, new onset Status: Acute (3) Facial droop Status: Acute (4) Right sided weakness Status: Acute Review of Systems Constitutional: + weakness, + fatigue, No fever, No chills Eyes: No worsening of vision, No eye pain Respiratory: No cough, No shortness of breath Cardiac: No chest pain, No edema Abdomen: No pain, No nausea Musculoskeletal: + muscle pain, + problem reported (pain in upper right arm, months), No joint pain Neurologic: No memory loss, No paralysis, No weakness, No vertigo, No balance problems Psychiatric: No depression symptoms, No anhedonism, No anxiety Objective Vital Signs Date Time Temp Pulse Resp B/P (MAP) Pulse Ox O2 Delivery O2 Flow Rate FiO2 12/23/17 04:00 Room Air 12/23/17 03:46 36.7 60 16 184/97 (126) 98 Room Air 12/23/17 03:41 36.7 60 16 184/97 (126) 98 12/22/17 23:59 Room Air 12/22/17 23:51 36.8 64 16 183/95 (124) 98 Room Air 179/92 (121) 12/22/17 20:00 Room Air 12/22/17 20:00 66 18 179/104 (129) 97 Room Air 12/22/17 19:45 37.0 67 17 197/91 (126) 98 Room Air 12/22/17 19:30 37.0 67 17 197/91 (126) 98 Room Air 12/22/17 19:30 37.0 67 17 197/91 98 Room Air 12/22/17 15:33 65 13 183/104 94 Room Air 12/22/17 14:44 69 23 178/100 97 Room Air 12/22/17 14:17 76 12/22/17 13:54 37.0 79 193/110 99 Room Air 12/22/17 13:53 99 Room Air Physical Exam General Appearance: WD/WN, + mild distress Eyes: normal inspection, PERRL, EOMI, sclerae normal Neck: supple, no JVD Respiratory/Chest: chest non-tender, lungs clear, normal breath sounds Cardiovascular: regular rate, rhythm, no murmur Abdomen: normal bowel sounds, non tender, soft Extremities: no pedal edema Neurologic/Psychiatric: no motor/sensory deficits, alert, oriented x 3 Skin: normal color, warm/dry, no rash Laboratory Results Last 24 Hours Test 12/22/17 14:29 12/22/17 14:31 12/22/17 14:46 12/22/17 20:33 White Blood Count 8.20 K/uL Red Blood Count 5.22 M/uL Hemoglobin 16.1 g/dL Hematocrit 45.1 % Mean Corpuscular Volume 86.4 fL Mean Corpuscular Hemoglobin 30.8 pg Mean Corpuscular Hemoglobin Concent 35.7 g/dl Platelet Count 171 K/uL Mean Platelet Volume 11.2 fL Neutrophils (%) (Auto) 71.9 % Lymphocytes (%) (Auto) 20.2 % Monocytes (%) (Auto) 5.6 % Eosinophils (%) (Auto) 1.3 % Basophils (%) (Auto) 0.4 % Neutrophils # (Auto) 5.89 K/uL Lymphocytes # (Auto) 1.66 K/uL Monocytes # (Auto) 0.46 K/uL Eosinophils # (Auto) 0.11 K/uL Basophils # (Auto) 0.03 K/uL RDW Standard Deviation 41.1 fL RDW Coefficient of Variation 13.0 % Immature Granulocyte % (Auto) 0.6 % Immature Granulocyte # (Auto) 0.05 K/uL Prothrombin Time 10.0 SECONDS Prothromb Time International Ratio 1.0 Activated Partial Thromboplast Time 23.8 SECONDS Partial Thromboplastin Ratio 0.9 Sodium Level 134 mmol/L Potassium Level 3.7 mmol/L Chloride Level 101 mmol/L Carbon Dioxide Level 28 mmol/L Anion Gap 5.0 mmol/L Blood Urea Nitrogen 14 mg/dl Creatinine 1.03 mg/dl Est Creatinine Clear Calc Drug Dose 93.0 ml/min Estimated GFR () 91.1 Estimated GFR (Non- 78.6 BUN/Creatinine Ratio 13.9 Random Glucose 351 mg/dl Estimated Average Glucose 272 mg/dl Hemoglobin A1c 11.1 % Calcium Level 8.6 mg/dl Magnesium Level 2.0 mg/dl Total Creatine Kinase 115 U/L Creatine Kinase MB 2.8 ng/ml Creatine Kinase MB Ratio 2.4 Troponin I < 0.015 ng/ml Beta-Hydroxybutyric Acid 1.54 mg/dL Lyme Disease IgG Antibody NEG Lyme Disease IgM Antibody NEG Bedside Glucose 321 mg/dl 204 mg/dl Urine Color YELLOW Urine Appearance CLEAR Urine pH 5.0 Urine Specific [place] 1.044 Urine Protein NEG Urine Glucose (UA) 3+ Urine Ketones NEG Urine Occult Blood NEG Urine Nitrite NEG Urine Bilirubin NEG Urine Urobilinogen NEG Urine Leukocyte Esterase NEG Test 12/22/17 22:18 12/23/17 06:20 12/23/17 06:36 Total Creatine Kinase 86 U/L 75 U/L Creatine Kinase MB 1.5 ng/ml 1.4 ng/ml Creatine Kinase MB Ratio 1.7 1.9 Troponin I < 0.015 ng/ml < 0.015 ng/ml White Blood Count 7.09 K/uL Red Blood Count 4.96 M/uL Hemoglobin 14.9 g/dL Hematocrit 43.4 % Mean Corpuscular Volume 87.5 fL Mean Corpuscular Hemoglobin 30.0 pg Mean Corpuscular Hemoglobin Concent 34.3 g/dl Platelet Count 159 K/uL Mean Platelet Volume 11.1 fL Neutrophils (%) (Auto) 51.1 % Lymphocytes (%) (Auto) 35.8 % Monocytes (%) (Auto) 8.7 % Eosinophils (%) (Auto) 3.4 % Basophils (%) (Auto) 0.6 % Neutrophils # (Auto) 3.62 K/uL Lymphocytes # (Auto) 2.54 K/uL Monocytes # (Auto) 0.62 K/uL Eosinophils # (Auto) 0.24 K/uL Basophils # (Auto) 0.04 K/uL RDW Standard Deviation 42.1 fL RDW Coefficient of Variation 13.1 % Immature Granulocyte % (Auto) 0.4 % Immature Granulocyte # (Auto) 0.03 K/uL Sodium Level 137 mmol/L Potassium Level 3.4 mmol/L Chloride Level 104 mmol/L Carbon Dioxide Level 27 mmol/L Anion Gap 7.0 mmol/L Blood Urea Nitrogen 16 mg/dl Creatinine 0.85 mg/dl Est Creatinine Clear Calc Drug Dose 109.9 ml/min Estimated GFR () 109.8 Estimated GFR (Non- 94.7 BUN/Creatinine Ratio 18.3 Random Glucose 247 mg/dl Calcium Level 8.3 mg/dl Triglycerides Level 282 mg/dl Cholesterol Level 197 mg/dl HDL Cholesterol 35 mg/dl LDL Cholesterol, Calculated 106 mg/dl VLDL Cholesterol, Calculated 56 mg/dl Cholesterol/HDL Ratio 5.6 Bedside Glucose 229 mg/dl Assessment and Plan 62M with leg weakness and slurred speech found to have acute stroke, uncontrolled htn and new onset diabetes, neurologic symptoms all but resolved CVA, confirmed by MRI, L pontine stroke, ASA, statin - permissible htn but remains higher than comfortable, will start lisinopril as will also be renal protective -negative trend of cardiac isos - PT/OT, speech--> likely will need home outpt referals - consult neuro, agrees to management thus far - Lyme titers negative Thoracic back pain/edema - MRI thoracic spine, negative for mechanical or neurologic derangements, 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 AIC 11.1 - BSG over 300 in ED - patient denies history of DM - recently finished course of prednisone - A1c 11!! , bsg ac & hs - insulin ssi and will start lantus bid and metformin once CT contrast dye restriction has passed diabetic education begun HTN- permissible for now until CVA r/o, starting ezequiel i for renal protective affects and htn control DVT proph - enoxaprin
--- NOTE | 2017-12-23 18:39 | DIAGNOSTIC IMAGING REPORT ---
MRI OF THE CERVICAL SPINE WITHOUT IV CONTRAST CLINICAL HISTORY: Right upper extremity radiculopathy. COMPARISON STUDY: CT angiogram of the neck dated 12/23/2017. TECHNIQUE: MRI of the cervical spine is performed utilizing various T1 and T2-weighted sequences in the axial and sagittal planes. IV contrast was not administered for this examination. The examination is modestly degraded by motion artifact. FINDINGS: Cervical spine: Vertebral body height and alignment are maintained throughout the cervical spine. There is mild straightening of the cervical lordosis. The atlantodental articulation appears intact, noting productive degenerative change. The spinous processes are preserved. No destructive bony lesion is seen. Intervertebral discs: Degenerative disc desiccation is seen throughout the cervical spine. No significant loss of height is identified. Spinal cord: The cervical spinal cord is normal in morphology and signal intensity. C2-C3: Unremarkable. C3-C4: A posterior disc bulge eccentric to the right effaces the ventral subarachnoid space. Uncovertebral and facet arthropathy cause moderate right and [id number] left neural foraminal stenosis. C4-C5: A large posterior disc osteophyte complex eccentric to the left abuts the ventral cord. Uncovertebral and facet arthropathy cause severe left and moderate to severe right neural foraminal stenosis. C5-C6: A posterior disc osteophyte complex effaces the ventral cord. Uncovertebral and facet arthropathy cause severe left and moderate to severe right neural foraminal stenosis. C6-C7: A posterior disc osteophyte complex abuts the ventral cord. Uncovertebral and facet arthropathy cause severe left and moderate to severe right neural foraminal stenosis. C7-T1: Unremarkable. Soft tissues: The prevertebral and paraspinous soft tissues are normal as imaged. Brain parenchyma: The partially imaged brain parenchyma at the skull base is normal in appearance. IMPRESSION: 1. There is multilevel cervical spondylosis as detailed above, greatest from C4-C5 through C6-C7. See discussion for detailed level by level analysis. 2. No destructive bony process is identified. 3. The cervical spinal cord is normal in morphology and signal intensity. Dictated: 12/23/2017 6:29 PM Transcribed: 12/23/2017 6:38 PM [email or web address] Electronically signed by: Sonny Mon M.D. 12/23/2017 7:05 PM Dictated Date/Time: 12/23/2017 6:29 PM
[2017-12-23] MEDS ORDERED: LISINOPRIL 2.5 MG TAB PO ONE (19:00)
[2017-12-23] MEDS: POTASSIUM CHLORIDE 20 MEQ TABCR PO SCH (21:27)
[2017-12-23] MEDS: ENOXAPARIN 40 MG/0.4 ML SYR SQ SCH (21:28)
[2017-12-23] MEDS: KETOROLAC TROMETHAMINE 30 MG/ML VIAL IV PRN (21:34)
[2017-12-24] VITALS (8 sets, daily range): BP systolic 153–181; BP diastolic 85–98; PULSE 55–59; TEMP 36.5–37.2; O2SAT 95–99; Ht 182.9 cm; Wt 91.9 kg
[2017-12-24 05:11] LABS: BASO % 0.6 %; BASO ABS # 0.05 K/uL (0-0.2); EOS ABS # 0.24 K/uL (0-0.5); HEMATOCRIT 43.3 % (42-52); HEMOGLOBIN 15.1 g/dL (14.0-18.0); IG# 0.03 K/uL (0.00-0.02); LYMPH % 33.9 %; LYMPH ABS # 2.71 K/uL (1.2-3.4); MEAN CELL VOLUME 88.2 fL (80-100); MEAN CORPUSCULAR HEMOGLOBIN 30.8 pg (25-34); MEAN CORPUSCULAR HGB CONC 34.9 g/dl (32-36); MEAN PLATELET VOLUME 10.9 fL (7.4-10.4); MONO ABS # 0.72 K/uL (0.11-0.59); NEUT % 53.1 %; NEUT ABS # 4.24 K/uL (1.4-6.5); PLATELET COUNT 154 K/uL (130-400); RED CELL DISTRIBUTION WIDTH CV 13.1 % (11.5-14.5); RED CELL DISTRIBUTION WIDTH SD 42.2 fL (36.4-46.3); WHITE BLOOD COUNT 7.99 K/uL (4.8-10.8)
[2017-12-24 05:35] LABS: CALCIUM 8.3 mg/dl (8.5-10.1); CREATININE 0.86 mg/dl (0.60-1.40); POTASSIUM 3.7 mmol/L (3.5-5.1)
[2017-12-24] MEDS: KETOROLAC TROMETHAMINE 30 MG/ML VIAL IV PRN (08:13)
[2017-12-24] MEDS: POTASSIUM CHLORIDE 20 MEQ TABCR PO SCH ×2 (08:14→21:18)
[2017-12-24] MEDS: ASPIRIN 81 MG ECTAB PO SCH (08:14)
[2017-12-24] MEDS: ATORVASTATIN 40 MG TAB PO SCH (08:14)
[2017-12-24] MEDS: LISINOPRIL 5 MG TAB PO SCH (08:15)
[2017-12-24] MEDS: INSULIN ASPART 100 UNITS/ML 3 ML PEN SC SCH ×4 (08:18→21:00)
[2017-12-24] MEDS: INSULIN GLARGINE SOLOSTAR 100 UNITS/ML 3 ML PEN SC SCH ×2 (08:19→21:20)
[2017-12-24] MEDS ORDERED: LPT40 PO (13:19)
[2017-12-24] MEDS ORDERED: METF500T PO (13:19)
[2017-12-24] MEDS ORDERED: LSN5 PO (13:19)
[2017-12-24] MEDS ORDERED: ASPEC81 PO (13:19)
--- NOTE | 2017-12-24 13:20 | Discharge Instructions ---
Discharge Instructions Date of Service Dec 24, 2017. Admission Reason for Admission: CVA Discharge Discharge Diagnosis / Problem: left pontine stroke Discharge Goals Goal(s): Diagnostic testing, Therapeutic intervention Activity Recommendations Activity Limitations: as noted below Lifting Limitations: gradually increase as tolerated . Instructions / Follow-Up Instructions / Follow-Up Risk Factors for Stroke: You can reduce your chances of stroke by working with your medical provider to adopt a healthy lifestyle. Some specific ways to lower your chance of stroke are: * If you are a smoker, now is the time to stop smoking cigarettes * If you are diabetic, improve the control of your blood sugars * Avoid excessive amounts of alcohol * Control high blood pressure * Lose weight if you are overweight * Be sure to lead an active lifestyle * Eat a healthy diet low in salt, cholesterol and fat You should know about other risk factors for stroke that you are unable to control. These include: * Age 55 years or older * Male gender * Certain racial groups: , or / * Family History of Stroke, Mini stroke or Heart Attack * Sickle Cell Disease Follow Up: It is important for you to keep your follow up appointments with your medical provider. Current Hospital Diet Patient's current hospital diet: Diabetes Type 2 Diet, AHA Diet (Heart Healthy) Discharge Diet Recommended Diet: Low Sodium Diet (2gm Na), Diabetes Type 2 Diet Pending Studies Studies pending at discharge: no Laboratory Results Hemoglobin A1c Test 12/22/17 14:29 Range/Units Estimated Average Glucose 272 mg/dl Hemoglobin A1c 11.1 H 4.5-5.6 % Lipid Panel Test 12/23/17 06:20 Range/Units Triglycerides Level 282 H 0-150 mg/dl Cholesterol Level 197 0-200 mg/dl HDL Cholesterol 35 mg/dl Cholesterol/HDL Ratio 5.6 LDL Cholesterol, Calculated 106 mg/dl Medical Emergencies . Who to Call and When: Medical Emergencies: Call 911 immediately if you experience any of the following warning signs and symptoms of Stroke: * Sudden numbness or weakness of the face, arm or leg, especially on one side of the body * Sudden confusion, trouble speaking or understanding * Sudden trouble seeing in one or both eyes * Sudden trouble walking, dizziness, loss of balance or coordination * Sudden severe headache with no cause Do not delay calling 911 if you experience any warning signs or symptoms of a stroke. Delay in seeking medical attention may affect what treatments can be given to you. . Non-Emergent Contact Non-Emergency issues call your: Primary Care Provider, Neurologist Call Non-Emergent contact if: temperature is above 101, your pain is unusual for you . . "Provider Documentation" section prepared by Sorin Méndez. . Stroke Core Measures Reason no t-PA for Stroke: Treatment not indicated Reason no antithrom by day 2: Treatment provided - N/A Reason no antithrom at D/C: Treatment provided - N/A Reason no statin at D/C: Treatment provided - N/A Reason no anticoag w/a fib: Treatment not indicated VTE Core Measure Inpt VTE Proph given/why not?: Enoxaparin (Lovenox)SQ
[2017-12-24] MEDS: ACETAMINOPHEN 325 MG TAB PO PRN (13:22)
--- NOTE | 2017-12-24 17:51 | Progress Note ---
Subjective Date of Service: Dec 24, 2017. Subjective pt is much more wobbly and unsteady with his gait, he also has some slurred speech, he and family are now concerning for home and request rehab Problem List Medical Problems: (1) CVA (cerebral vascular accident) Status: Acute (2) Diabetes mellitus, new onset Status: Acute (3) Facial droop Status: Acute (4) Right sided weakness Status: Acute Review of Systems Constitutional: + weakness, + fatigue, No fever, No chills Respiratory: No cough, No wheezing, No shortness of breath Cardiac: No chest pain, No orthopnea, No PND Abdomen: No pain, No nausea, No vomiting Musculoskeletal: + muscle pain Male : No dysuria, No urinary frequency Neurologic: + weakness, + balance problems, No memory loss, No paralysis Psychiatric: No depression symptoms, No anxiety Objective Vital Signs Date Time Temp Pulse Resp B/P (MAP) Pulse Ox O2 Delivery O2 Flow Rate FiO2 12/24/17 15:34 37.2 59 19 166/97 (120) 98 Room Air 12/24/17 12:00 Room Air 12/24/17 11:36 36.9 59 19 165/88 (113) 98 Room Air 12/24/17 08:00 Room Air 12/24/17 07:35 36.5 59 18 181/98 (125) 98 Room Air 12/24/17 04:30 95 Room Air 12/24/17 03:23 36.7 55 18 153/85 (107) 98 Room Air 12/24/17 00:30 99 Room Air 12/23/17 23:42 36.5 56 16 184/105 (131) 99 Room Air 160/90 (113) 12/23/17 20:38 37.1 62 20 178/98 (124) 95 Room Air 12/23/17 20:29 37.1 62 20 178/98 (124) 95 Room Air 12/23/17 20:00 Room Air Physical Exam General Appearance: WD/WN, no apparent distress Eyes: normal inspection, sclerae normal, + pertinent finding (mild left upper eyelid droop) Neck: supple, no JVD Respiratory/Chest: chest non-tender, lungs clear, normal breath sounds Cardiovascular: regular rate, rhythm, no murmur Abdomen: normal bowel sounds, non tender, soft Extremities: no pedal edema, no calf tenderness Neurologic/Psychiatric: alert, oriented x 3, + motor weakness Laboratory Results Last 24 Hours Test 12/23/17 20:25 12/24/17 04:50 12/24/17 11:14 12/24/17 16:20 Bedside Glucose 226 mg/dl 217 mg/dl 130 mg/dl White Blood Count 7.99 K/uL Red Blood Count 4.91 M/uL Hemoglobin 15.1 g/dL Hematocrit 43.3 % Mean Corpuscular Volume 88.2 fL Mean Corpuscular Hemoglobin 30.8 pg Mean Corpuscular Hemoglobin Concent 34.9 g/dl Platelet Count 154 K/uL Mean Platelet Volume 10.9 fL Neutrophils (%) (Auto) 53.1 % Lymphocytes (%) (Auto) 33.9 % Monocytes (%) (Auto) 9.0 % Eosinophils (%) (Auto) 3.0 % Basophils (%) (Auto) 0.6 % Neutrophils # (Auto) 4.24 K/uL Lymphocytes # (Auto) 2.71 K/uL Monocytes # (Auto) 0.72 K/uL Eosinophils # (Auto) 0.24 K/uL Basophils # (Auto) 0.05 K/uL RDW Standard Deviation 42.2 fL RDW Coefficient of Variation 13.1 % Immature Granulocyte % (Auto) 0.4 % Immature Granulocyte # (Auto) 0.03 K/uL Sodium Level 136 mmol/L Potassium Level 3.7 mmol/L Chloride Level 105 mmol/L Carbon Dioxide Level 26 mmol/L Anion Gap 5.0 mmol/L Blood Urea Nitrogen 19 mg/dl Creatinine 0.86 mg/dl Est Creatinine Clear Calc Drug Dose 108.6 ml/min Estimated GFR () 109.2 Estimated GFR (Non- 94.3 BUN/Creatinine Ratio 21.8 Random Glucose 182 mg/dl Calcium Level 8.3 mg/dl Assessment and Plan 62M with leg weakness and slurred speech found to have acute stroke, uncontrolled htn and new onset diabetes, neurologic symptoms initially resolved and now slightly worsened CVA, confirmed by MRI, L pontine stroke, ASA, statin - permissible htn but remains higher than comfortable, did start lisinopril as will also be renal protective -negative trend of cardiac isos - PT/OT, speech--> likely will need rehab - consult neuro, agrees to management thus far - Lyme titers negative Thoracic back pain/edema - MRI thoracic spine, negative for mechanical or neurologic derangements, 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 AIC 11.1 - BSG over 300 in ED - patient denies history of DM - recently finished course of prednisone - A1c 11!! , bsg ac & hs - insulin ssi and will start lantus bid and metformin once CT contrast dye restriction has passed diabetic education begun, eventual transition to once daily lantus, monitor for toxic affects on insulin with hypoglycemia HTN-, starting ezequiel i for renal protective affects and htn control DVT proph - enoxaprin
[2017-12-24] MEDS ORDERED: MAGNESIUM HYDROXIDE SUSP 30 ML UDC PO ONE (18:15)
[2017-12-24] MEDS ORDERED: MAGNESIUM HYDROXIDE SUSP 30 ML UDC PO PRN (18:15)
[2017-12-24] MEDS: ENOXAPARIN 40 MG/0.4 ML SYR SQ SCH (21:18)
[2017-12-25] VITALS (7 sets, daily range): BP systolic 167–191; BP diastolic 92–115; PULSE 53–64; TEMP 36.6–37.3; O2SAT 97–98
[2017-12-25 05:38] LABS: BASO % 0.4 %; BASO ABS # 0.03 K/uL (0-0.2); EOS % 2.5 %; EOS ABS # 0.18 K/uL (0-0.5); HEMATOCRIT 44.1 % (42-52); HEMOGLOBIN 15.8 g/dL (14.0-18.0); IG# 0.01 K/uL (0.00-0.02); LYMPH % 33.1 %; MEAN CELL VOLUME 87.8 fL (80-100); MEAN CORPUSCULAR HEMOGLOBIN 31.5 pg (25-34); MEAN CORPUSCULAR HGB CONC 35.8 g/dl (32-36); MEAN PLATELET VOLUME 11.3 fL (7.4-10.4); MONO % 8.3 %; NEUT % 55.6 %; NEUT ABS # 4.03 K/uL (1.4-6.5); PLATELET COUNT 158 K/uL (130-400); RED CELL DISTRIBUTION WIDTH SD 41.4 fL (36.4-46.3); WHITE BLOOD COUNT 7.25 K/uL (4.8-10.8)
[2017-12-25 06:11] LABS: CALCIUM 8.4 mg/dl (8.5-10.1); CREATININE 0.72 mg/dl (0.60-1.40); POTASSIUM 3.7 mmol/L (3.5-5.1)
[2017-12-25] MEDS: ATORVASTATIN 40 MG TAB PO SCH (08:25)
[2017-12-25] MEDS: ASPIRIN 81 MG ECTAB PO SCH (08:25)
[2017-12-25] MEDS: LISINOPRIL 5 MG TAB PO SCH (08:26)
[2017-12-25] MEDS: POLYETHYLENE (MIRALAX) 17 GM PACK PO SCH (08:26)
[2017-12-25] MEDS: ACETAMINOPHEN 325 MG TAB PO PRN ×3 (08:28→20:59)
[2017-12-25] MEDS: INSULIN GLARGINE SOLOSTAR 100 UNITS/ML 3 ML PEN SC SCH ×2 (08:31→20:59)
[2017-12-25] MEDS: INSULIN ASPART 100 UNITS/ML 3 ML PEN SC SCH ×4 (08:31→20:58)
[2017-12-25] MEDS ORDERED: LISINOPRIL 5 MG TAB PO ONE (13:05)
--- NOTE | 2017-12-25 14:29 | Progress Note ---
Subjective Date of Service: Dec 25, 2017. Subjective pt is feeling well has no issues that are new, notices arm dextirity and speech fluency fall off as day wears on, still is very supportive of rehab Problem List Medical Problems: (1) CVA (cerebral vascular accident) Status: Acute (2) Diabetes mellitus, new onset Status: Acute (3) Facial droop Status: Acute (4) Right sided weakness Status: Acute Review of Systems Constitutional: No fever, No chills, No weakness Respiratory: No cough, No shortness of breath Cardiac: No chest pain, No PND, No edema Abdomen: No pain, No nausea, No vomiting, No diarrhea Musculoskeletal: No muscle pain, No swelling Neurologic: + paralysis, + weakness, + numbness/tingling, + balance problems, No memory loss Psychiatric: No depression symptoms, No anxiety Objective Vital Signs Date Time Temp Pulse Resp B/P (MAP) Pulse Ox O2 Delivery O2 Flow Rate FiO2 12/25/17 12:00 Room Air 12/25/17 11:40 36.7 63 18 184/96 (125) 98 Room Air 12/25/17 08:00 Room Air 12/25/17 07:55 37.3 64 19 191/99 (129) 97 Room Air 12/25/17 04:04 36.7 53 19 173/92 (119) 98 Room Air 12/25/17 04:00 Room Air 12/25/17 00:00 Room Air 12/24/17 23:46 36.7 56 19 161/90 (113) 97 Room Air 12/24/17 20:00 Room Air 12/24/17 19:18 36.8 58 20 168/98 (121) 96 Room Air 12/24/17 16:00 Room Air 12/24/17 15:34 37.2 59 19 166/97 (120) 98 Room Air Physical Exam General Appearance: WD/WN, + mild distress Eyes: normal inspection, sclerae normal Respiratory/Chest: chest non-tender, lungs clear, normal breath sounds Cardiovascular: regular rate, rhythm, no murmur Abdomen: normal bowel sounds, non tender, soft Extremities: no pedal edema, no calf tenderness Neurologic/Psychiatric: alert, oriented x 3 Laboratory Results Last 24 Hours Test 12/24/17 16:20 12/24/17 20:17 12/25/17 05:20 12/25/17 06:42 Bedside Glucose 130 mg/dl 137 mg/dl 140 mg/dl White Blood Count 7.25 K/uL Red Blood Count 5.02 M/uL Hemoglobin 15.8 g/dL Hematocrit 44.1 % Mean Corpuscular Volume 87.8 fL Mean Corpuscular Hemoglobin 31.5 pg Mean Corpuscular Hemoglobin Concent 35.8 g/dl Platelet Count 158 K/uL Mean Platelet Volume 11.3 fL Neutrophils (%) (Auto) 55.6 % Lymphocytes (%) (Auto) 33.1 % Monocytes (%) (Auto) 8.3 % Eosinophils (%) (Auto) 2.5 % Basophils (%) (Auto) 0.4 % Neutrophils # (Auto) 4.03 K/uL Lymphocytes # (Auto) 2.40 K/uL Monocytes # (Auto) 0.60 K/uL Eosinophils # (Auto) 0.18 K/uL Basophils # (Auto) 0.03 K/uL RDW Standard Deviation 41.4 fL RDW Coefficient of Variation 13.0 % Immature Granulocyte % (Auto) 0.1 % Immature Granulocyte # (Auto) 0.01 K/uL Sodium Level 137 mmol/L Potassium Level 3.7 mmol/L Chloride Level 105 mmol/L Carbon Dioxide Level 29 mmol/L Anion Gap 3.0 mmol/L Blood Urea Nitrogen 19 mg/dl Creatinine 0.72 mg/dl Est Creatinine Clear Calc Drug Dose 119.8 ml/min Estimated GFR () 117.5 Estimated GFR (Non- 101.4 BUN/Creatinine Ratio 27.0 Random Glucose 156 mg/dl Calcium Level 8.4 mg/dl Test 12/25/17 11:16 Bedside Glucose 245 mg/dl Assessment and Plan 62M with leg weakness and slurred speech found to have acute stroke, uncontrolled htn and new onset diabetes, neurologic symptoms initially resolved and now slightly worsened CVA, confirmed by MRI, L pontine stroke, ASA, statin - permissible htn but remains higher than comfortable, increase lisinopril 12/25 as will also be renal protective -negative trend of cardiac isos - PT/OT, speech--> likely will need rehab - consult neuro, agrees to management thus far - Lyme titers negative Thoracic back pain/edema - MRI thoracic spine, negative for mechanical or neurologic derangements, does show lipoma, will try toradol and imaging cervical spine for nerve root impingement as pain does radiate in a radicular pattern to inner hand, and MRI of C spine suggests right sided foraminal impingement, cannot use steroid for currently uncontrolled glucose - will try ultram and celebrex, plus tylenol Hyperglycemia. AIC 11.1 - BSG over 300 in ED - patient denies history of DM - recently finished course of prednisone - A1c 11!! , bsg ac & hs - insulin ssi and transition to once a day lantus and metformin once CT contrast dye restriction has passed diabetic education begun, eventual transition to once daily lantus, monitor for toxic affects on insulin with hypoglycemia HTN-, starting ezequiel i for renal protective affects and htn control DVT proph - enoxaprin
[2017-12-25] MEDS ORDERED: CeleBREX 100 MG CAP PO ONE (14:45)
[2017-12-25] MEDS ORDERED: LIDODERM (LIDOCAINE) PATCH 5% TD SCH (14:45)
[2017-12-25] MEDS: ENOXAPARIN 40 MG/0.4 ML SYR SQ SCH (21:00)
[2017-12-26 04:00] VITALS: BP 171/89; PULSE 58; TEMP 36.6; O2SAT 95
[2017-12-26 07:22] LABS: HEMATOCRIT 44.7 % (42-52); HEMOGLOBIN 15.7 g/dL (14.0-18.0); MEAN CELL VOLUME 87.6 fL (80-100); MEAN CORPUSCULAR HEMOGLOBIN 30.8 pg (25-34); MEAN CORPUSCULAR HGB CONC 35.1 g/dl (32-36); MEAN PLATELET VOLUME 10.7 fL (7.4-10.4); PLATELET COUNT 150 K/uL (130-400); RED CELL DISTRIBUTION WIDTH CV 12.9 % (11.5-14.5); RED CELL DISTRIBUTION WIDTH SD 41.5 fL (36.4-46.3); WHITE BLOOD COUNT 7.51 K/uL (4.8-10.8)
[2017-12-26 07:32] VITALS: BP 178/91; PULSE 65; TEMP 36.7; O2SAT 99
[2017-12-26] MEDS: METFORMIN HCL 500 MG TAB PO SCH ×2 (08:03→16:21)
[2017-12-26] MEDS: CeleBREX 200 MG CAP PO SCH (08:03)
[2017-12-26] MEDS: ASPIRIN 81 MG ECTAB PO SCH (08:04)
[2017-12-26] MEDS: ATORVASTATIN 40 MG TAB PO SCH (08:04)
[2017-12-26] MEDS: POLYETHYLENE (MIRALAX) 17 GM PACK PO SCH (08:04)
[2017-12-26] MEDS: INSULIN ASPART 100 UNITS/ML 3 ML PEN SC SCH ×4 (08:07→20:54)
[2017-12-26] MEDS: INSULIN GLARGINE SOLOSTAR 100 UNITS/ML 3 ML PEN SC SCH (08:08)
[2017-12-26] MEDS: ACETAMINOPHEN 325 MG TAB PO PRN (08:13)
[2017-12-26] MEDS ORDERED: NURSING DECISION MEDICATION ORDER SCH (08:45)
[2017-12-26] MEDS ORDERED: LISINOPRIL 10 MG TAB PO SCH (09:00)
[2017-12-26] MEDS ORDERED: INSULIN GLARGINE SOLOSTAR 100 UNITS/ML 3 ML PEN SC SCH (09:00)
[2017-12-26] MEDS ORDERED: LISINOPRIL 10 MG TAB PO ONE (13:45)
--- NOTE | 2017-12-26 13:47 | Progress Note ---
Subjective Date of Service: Dec 26, 2017. Subjective Patient continues to remain with relatively little deficit until fatigue sets in that he has more problems with word finding and some extremity weakness he has no other new complaints or problems at this time his vital signs still remains with slightly elevated blood pressures Problem List Medical Problems: (1) CVA (cerebral vascular accident) Status: Acute (2) Diabetes mellitus, new onset Status: Acute (3) Facial droop Status: Acute (4) Right sided weakness Status: Acute Review of Systems Constitutional: No fever, No chills Eyes: No worsening of vision, No diplopia ENT: No hearing loss, No sore throat Respiratory: No cough, No shortness of breath Cardiac: No chest pain, No edema Neurologic: + weakness, + balance problems Psychiatric: No depression symptoms, No anxiety Objective Vital Signs Date Time Temp Pulse Resp B/P (MAP) Pulse Ox O2 Delivery O2 Flow Rate FiO2 12/26/17 08:00 Room Air 12/26/17 07:32 36.7 65 20 178/91 (120) 99 Room Air 12/26/17 04:00 36.6 58 17 171/89 (116) 95 Room Air 12/26/17 00:00 Room Air 12/25/17 23:41 36.6 58 19 168/100 (122) 98 Room Air 12/25/17 16:20 Room Air 12/25/17 16:00 36.6 58 20 97 12/25/17 15:58 36.6 58 20 177/115 (135) 97 Room Air 12/25/17 14:50 37.1 60 19 167/98 (121) 97 Room Air Physical Exam General Appearance: WD/WN, + mild distress Eyes: normal inspection, sclerae normal Respiratory/Chest: chest non-tender, lungs clear, normal breath sounds Cardiovascular: regular rate, rhythm, no murmur Abdomen: normal bowel sounds, non tender, soft Neurologic/Psychiatric: alert, oriented x 3, + abnormal gait, + pertinent finding (some slowing of his speech burt) Laboratory Results Last 24 Hours Test 12/25/17 16:11 12/25/17 19:55 12/26/17 07:08 12/26/17 07:36 Bedside Glucose 124 mg/dl 164 mg/dl 141 mg/dl White Blood Count 7.51 K/uL Red Blood Count 5.10 M/uL Hemoglobin 15.7 g/dL Hematocrit 44.7 % Mean Corpuscular Volume 87.6 fL Mean Corpuscular Hemoglobin 30.8 pg Mean Corpuscular Hemoglobin Concent 35.1 g/dl RDW Standard Deviation 41.5 fL RDW Coefficient of Variation 12.9 % Platelet Count 150 K/uL Mean Platelet Volume 10.7 fL Test 12/26/17 11:08 Bedside Glucose 197 mg/dl Assessment and Plan 62M with leg weakness and slurred speech found to have acute stroke, uncontrolled htn and new onset diabetes, neurologic symptoms initially resolved but worsened with fatigue CVA, confirmed by MRI, L pontine stroke, ASA, statin - permissible htn but remains higher than comfortable, increase lisinopril 12/26 as will also be renal protective -negative trend of cardiac isos - PT/OT, speech--> look for insurance approval of rehab - consult neuro, agrees to management thus far - Lyme titers negative Thoracic back pain/edema - MRI thoracic spine, negative for mechanical or neurologic derangements, 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 Patient reports good improvement with Lidoderm Hyperglycemia. AIC 11.1 - BSG over 300 in ED - patient denies history of DM - recently finished course of prednisone - A1c 11!! , bsg ac & hs - insulin ssi and transition to once a day lantus and metformin once CT contrast dye restriction has passed diabetic education begun, eventual transition to once daily lantus, monitor for toxic affects on insulin with hypoglycemia HTN-, escalated doses of ezequiel i for renal protective affects and htn control DVT proph - enoxaprin
[2017-12-26 15:19] VITALS: BP 162/91; PULSE 73; TEMP 36.8; O2SAT 98
[2017-12-26] MEDS: TRAMADOL HCL 50 MG TAB PO PRN (16:21)
[2017-12-26] MEDS: LIDODERM (LIDOCAINE) PATCH 5% TD SCH (20:53)
[2017-12-26] MEDS: ENOXAPARIN 40 MG/0.4 ML SYR SQ SCH (20:54)
[2017-12-26 23:56] VITALS: BP 155/78; PULSE 54; TEMP 36.5; O2SAT 97
[2017-12-27 07:55] VITALS: BP 148/94; PULSE 60; TEMP 36.7; O2SAT 97
[2017-12-27 07:55] LABS: HEMATOCRIT 45.3 % (42-52); HEMOGLOBIN 15.6 g/dL (14.0-18.0); MEAN CELL VOLUME 88.8 fL (80-100); MEAN CORPUSCULAR HEMOGLOBIN 30.6 pg (25-34); MEAN CORPUSCULAR HGB CONC 34.4 g/dl (32-36); MEAN PLATELET VOLUME 11.4 fL (7.4-10.4); PLATELET COUNT 162 K/uL (130-400); RED CELL DISTRIBUTION WIDTH CV 13.1 % (11.5-14.5); RED CELL DISTRIBUTION WIDTH SD 42.6 fL (36.4-46.3); WHITE BLOOD COUNT 8.49 K/uL (4.8-10.8)
[2017-12-27] MEDS: POLYETHYLENE (MIRALAX) 17 GM PACK PO SCH (08:21)
[2017-12-27] MEDS: ATORVASTATIN 40 MG TAB PO SCH (08:22)
[2017-12-27] MEDS: ASPIRIN 81 MG ECTAB PO SCH (08:22)
[2017-12-27] MEDS: CeleBREX 200 MG CAP PO SCH (08:22)
[2017-12-27] MEDS: METFORMIN HCL 500 MG TAB PO SCH ×2 (08:22→17:01)
[2017-12-27] MEDS: LISINOPRIL 20 MG TAB PO SCH (08:22)
[2017-12-27] MEDS: INSULIN ASPART 100 UNITS/ML 3 ML PEN SC SCH ×4 (08:28→20:39)
[2017-12-27] MEDS: INSULIN GLARGINE SOLOSTAR 100 UNITS/ML 3 ML PEN SC SCH (08:28)
--- NOTE | 2017-12-27 11:26 | Hospitalist Progress Note ---
Hospitalist Progress Note Date of Service Dec 27, 2017. (Maryellen Pérez ., GAELC) Subjective Pt evaluation today including: conversation w/ patient, physical exam, chart review, lab review, review of inpatient medication list Pain: 5/10 tight pain behind right shoulder PO Intake: Tolerating PO diet Voiding: no voiding problems Patient reports feeling well. He was just up walking with physical therapy and reports that he still feels rather unsteady and loses his balance at times. He also notes that he does feel lightheaded at times when walking. He still complains of pain behind his right shoulder, currently a 5/10 tight pain. The patient denies any difficulty swallowing or eating. The patient denies fevers, chills, sweats, chest pain, palpitations, claudication, cough, wheezing, shortness of breath, nausea, vomiting, abdominal pain, dysuria, hematuria, urinary retention, paralysis, weakness, numbness and tingling. Additional Comments: See HPI for pertinent positives and negatives. All other systems reviewed and negative. (Maryellen Pérez ., GAELC) Objective Vital Signs Date Time Temp Pulse Resp B/P (MAP) Pulse Ox O2 Delivery O2 Flow Rate FiO2 12/27/17 08:00 Room Air 12/27/17 07:55 36.7 60 20 148/94 (112) 97 Room Air 12/27/17 00:00 Room Air 12/26/17 23:56 36.5 54 19 155/78 (103) 97 Room Air 12/26/17 16:10 Room Air 12/26/17 15:19 36.8 73 18 162/91 (114) 98 Room Air (Maryellen Pérez PA-C) Physical Exam Notes: General appearance: Well-developed, well-nourished, no apparent distress Head: Normocephalic, atraumatic Eyes: Normal inspection, PERRL, EOMI ENT: Normal ENT inspection, hearing grossly normal, pharynx normal Neck: Supple, no JVD, trachea midline Respiratory/Chest: Lungs clear to auscultation, normal breath sounds, no respiratory distress Cardiovascular: Regular rate & rhythm, no gallop, no murmur Abdomen/GI: Normal bowel sounds, non-tender, soft Extremities/Musculoskeletal: Normal inspection, no calf tenderness, no pedal edema Neurological/Psych: +Slight right facial droop, slightly slurred with some words. Slight right pronator drift. Alert, normal mood/affect, oriented x 3 Skin: Normal color, warm/dry, no rash (Maryellen Pérez, VIANNEY) Laboratory Results Last 24 Hours Test 12/26/17 11:08 12/26/17 16:19 12/26/17 19:55 12/27/17 07:05 Bedside Glucose 197 mg/dl 157 mg/dl 138 mg/dl White Blood Count 8.49 K/uL Red Blood Count 5.10 M/uL Hemoglobin 15.6 g/dL Hematocrit 45.3 % Mean Corpuscular Volume 88.8 fL Mean Corpuscular Hemoglobin 30.6 pg Mean Corpuscular Hemoglobin Concent 34.4 g/dl RDW Standard Deviation 42.6 fL RDW Coefficient of Variation 13.1 % Platelet Count 162 K/uL Mean Platelet Volume 11.4 fL Test 12/27/17 07:43 Bedside Glucose 142 mg/dl (Maryellen Pérez PA-C) Assessment and Plan 62 y/o male without known significant past medical history prior to arrival who presents with slurred speech and right sided weakness. The patient has not seen a PCP for routine check ups for several years. CVA--stable -Head CT negative -MRI brain shows small acute left anterior pontine infarct -MRA head, CTA neck, carotid ultrasound without significant disease -HTN improving, still within permissive range -Cardiac enzymes negative -PT/OT recommend rehab -Speech therapy: ok for regular AHA diet -Neuro consulted, agree with management -Echo with EF 55-60%, no wall motion abnormalities. Grade II diastolic dysfunction. PFO. 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 No disc herniation, central canal stenosis, or neural foraminal narrowing. No spinal cord or bony abnormalities. -MRI cervical spine with multilevel cervical spondylosis, greatest from C4-C5 through C6-C7. Findings do suggest right foraminal impingement. No destructive bony process, spinal cord normal in morphology. -Continue Tramadol, Celebrex, Tylenol prn, Lidoderm patch DVT prophylaxis -Enoxaparin 40 mg SC q24h Code Status -Level I, FULL RESUSCITATION STATUS Dispo -PT/OT recommend rehab -Referral to [facility], insurance auth pending Continued [facility] stay due to: home environment unsafe for pt (Maryellen Pérez ., PA-C) Supervising Note Dr. Thomas I performed a history and physical examination on the patient. I reviewed above note and agree with it. I discussed plan with APC and patient. During my face to face encounter with the patient, I answered all of the patient's questions. (Andrea Thomas M.D.)
[2017-12-27] MEDS: TRAMADOL HCL 50 MG TAB PO PRN ×3 (11:49→23:53)
[2017-12-27 15:58] VITALS: BP_SYST 152; BP_SYST 178; BP_DIAS 91; BP_DIAS 96; PULSE 62; TEMP 36.7; O2SAT 96
[2017-12-27 16:05] VITALS: O2SAT 96
[2017-12-27 17:53] VITALS: BP 158/88
[2017-12-27] MEDS: LIDODERM (LIDOCAINE) PATCH 5% TD SCH (20:40)
[2017-12-27] MEDS: ENOXAPARIN 40 MG/0.4 ML SYR SQ SCH (20:41)
[2017-12-28] VITALS: O2SAT 96
[2017-12-28 00:24] VITALS: BP 178/91; PULSE 62; TEMP 36.7; O2SAT 96
[2017-12-28 07:50] VITALS: BP 145/93; PULSE 62; TEMP 36.8; O2SAT 96
[2017-12-28] MEDS: ATORVASTATIN 40 MG TAB PO SCH (08:29)
[2017-12-28] MEDS: ASPIRIN 81 MG ECTAB PO SCH (08:29)
[2017-12-28] MEDS: INSULIN ASPART 100 UNITS/ML 3 ML PEN SC SCH ×2 (08:29→12:03)
[2017-12-28] MEDS: TRAMADOL HCL 50 MG TAB PO PRN ×2 (08:29→15:48)
[2017-12-28] MEDS: METFORMIN HCL 500 MG TAB PO SCH (08:29)
[2017-12-28] MEDS: POLYETHYLENE (MIRALAX) 17 GM PACK PO SCH (08:30)
[2017-12-28] MEDS: LISINOPRIL 20 MG TAB PO SCH (08:30)
[2017-12-28] MEDS: CeleBREX 200 MG CAP PO SCH (08:30)
[2017-12-28] MEDS: INSULIN GLARGINE SOLOSTAR 100 UNITS/ML 3 ML PEN SC SCH (08:32)
[2017-12-28] MEDS ORDERED: MRLP17 PO (11:29)
[2017-12-28] MEDS ORDERED: LDDP5 TD (11:29)
[2017-12-28] MEDS ORDERED: ULT50X PO (11:29)
[2017-12-28] MEDS ORDERED: LSN20 PO (11:29)
--- NOTE | 2017-12-28 11:47 | Discharge Instructions ---
Discharge Instructions Date of Service Dec 28, 2017. Admission Reason for Admission: CVA Discharge Discharge Diagnosis / Problem: Stroke Discharge Goals Goal(s): Decrease discomfort, Improve function, Diagnostic testing, Therapeutic intervention Activity Recommendations Activity Level: Assistance Required Therapies: Physical Therapy, Occupational Therapy, Speech Therapy . Additional Information Patient informed of condition: Yes Advance Directives: No DNR: No Level of Care: Acute Rehab Communicable Disease: No Prognosis: Stable Aguirre Catheter: No Instructions / Follow-Up Instructions / Follow-Up The patient was admitted to the hospital after presenting with slurred speech and right sided weakness. The patient was found to have a small left pontine stroke on MRI. The patient had not been following up with a PCP for quite some time and had untreated HTN as well as new diagnosis of DM type 2. The patient was also found to have a patent foramen ovale on echo. The patient is doing well but does still have some unsteady gait, slight facial droop and mild dysarthria requiring acute rehab. Medications: *Aspirin 81 mg PO qd. *Atorvastatin (Lipitor) 40 mg PO qd. *Lisinopril 20 mg PO qd. *Metformin 500 mg PO BID. *Lidoderm patch to posterior right shoulder. Apply at bedtime for 12 hours, then remove for 12 hours *Tramadol 50 mg PO q6h as needed for pain. Follow up: *PCP follow up appointment scheduled for December 29 at [facility] at 5:00 pm (asked to arrive at 4:40 pm). *Follow up with neurology clinic in 1 month for stroke. Activity Recommendations: See above Activation of Emergency Medical System: Call 911, immediately, if you experience any of the following: Warning Signs and Symptoms of Stroke: * Sudden numbness or weakness of the face, arm or leg, especially on one side of the body * Sudden confusion, trouble speaking or understanding * Sudden trouble seeing in one or both eyes * Sudden trouble walking, dizziness, loss of balance or coordination * Sudden severe headache with no cause Do not delay calling 911 if you experience any warning signs or symptoms of a stroke. Delay in seeking medical attention may affect what treatments can be given to you. Risk Factors for Stroke: You can reduce your chances of stroke by working with your medical provider to adopt a healthy lifestyle. Some specific ways to lower your chance of stroke are: * If you are a smoker, now is the time to stop smoking cigarettes * If you are diabetic, improve the control of your blood sugars * Avoid excessive amounts of alcohol * Control high blood pressure * Lose weight if you are overweight * Be sure to lead an active lifestyle * Eat a healthy diet low in salt, cholesterol and fat You should know about other risk factors for stroke that you are unable to control. These include: * Age 55 years or older * Male gender * Certain racial groups: , or / * Family History of Stroke, Mini stroke or Heart Attack * Sickle Cell Disease Follow Up: It is important for you to keep your follow up appointments with your medical provider. Current Hospital Diet Patient's current hospital diet: Diabetes Type 2 Diet, AHA Diet (Heart Healthy) Discharge Diet Recommended Diet: AHA Diet (Heart Healthy), Diabetes Type 2 Diet Pending Studies Studies pending at discharge: no Physician Orders On Transfer Special Precautions: Fall precautions Vital Signs: Routine Laboratory Results Hemoglobin A1c Test 12/22/17 14:29 Range/Units Estimated Average Glucose 272 mg/dl Hemoglobin A1c 11.1 H 4.5-5.6 % Lipid Panel Test 12/23/17 06:20 Range/Units Triglycerides Level 282 H 0-150 mg/dl Cholesterol Level 197 0-200 mg/dl HDL Cholesterol 35 mg/dl Cholesterol/HDL Ratio 5.6 LDL Cholesterol, Calculated 106 mg/dl Medical Emergencies . Who to Call and When: Medical Emergencies: If at any time you feel your situation is an emergency, please call 911 immediately. . Non-Emergent Contact Non-Emergency issues call your: Primary Care Provider, Neurologist Call Non-Emergent contact if: you have a fever, your pain is not controlled, your pain is worsening, your pain is unusual for you, your pain is concerning you, you have any medication questions . Past History Medical & Surgical History: (1) CVA (cerebral vascular accident) . "Provider Documentation" section prepared by Maryellen Pérez. . Community Support Worker Recommendations Community Support Worker Recommendations: Neurology recommendations: Follow-up PT/OT and speech therapies for discharge planning Stroke risk factor modifications and recommendations: Blood pressure recommendations for the first month post hospital discharge 150/ 90-130/80, and after that blood pressure recommendations 130/80-110/70 Total cholesterol goal 100- 200 and LDL goal less than 70 Hemoglobin A1c goal less than 7 Encourage cardiovascular exercise at least 3 times a week for 30 minutes. Follow-up in neurology clinic in 1 month for post stroke hospital follow-up. Core Measure Problem Core Measures: Stroke Stroke Core Measures Reason no t-PA for Stroke: Treatment not indicated Reason no antithrom by day 2: Treatment provided - N/A Reason no antithrom at D/C: Treatment provided - N/A Reason no statin at D/C: Treatment provided - N/A Reason no anticoag w/a fib: Treatment not indicated [place] Drug Monitoring Program Search Results: patient reviewed within database (not found within database)
--- NOTE | 2017-12-28 13:44 | Discharge Summary ---
Discharge Summary Date of Service Dec 28, 2017. Discharge Summary Admission Date: Dec 22, 2017 at 17:06 Discharge Date: Dec 28, 2017 Discharge Disposition: Rehab Principal Diagnosis: CVA Problems/Secondary Diagnoses: HTN, DM II, back pain Immunizations: Have You Had Influenza Vaccine: No History of Tetanus Vaccine?: Yes Tetanus Immunization Date: Sep 29, 2017 History of Pneumococcal: No Procedures: MRI OF THE BRAIN WITHOUT AND WITH IV CONTRAST CLINICAL HISTORY: Stroke symptoms. Slurred speech. Difficulty walking. COMPARISON STUDY: Head CT performed earlier today. TECHNIQUE: Utilizing a 1.5 Radha magnet and dedicated coil, multiplanar, multiecho imaging of the brain was performed pre and postcontrast administration. IV administration of 10 mL of Gadavist contrast was uneventful. FINDINGS: Note is made of a 1.3 x 0.5 cm focus of restricted diffusion within the left anterior priscilla consistent with an acute infarct. There is no mass effect or evidence of hemorrhagic conversion. No additional acute infarcts are present. Ventricular system is unremarkable. Basilar cisterns are patent. Flow-voids for the major intracranial vessels are present. There is no intracranial mass or pathologic enhancement. A few suspected old lacunar infarcts are noted. Calvarial signal is maintained. IMPRESSION: Small acute left anterior pontine infarct. No mass effect or evidence for hemorrhagic conversion. [~ rep ct add3]] MRI OF THE THORACIC SPINE COMBO CLINICAL HISTORY: Palpable lump overlying the thoracic spine. Difficulty walking. COMPARISON STUDY: No priors. TECHNIQUE: MRI of the thoracic spine is performed utilizing various T1 and T2-weighted sequences in the axial and sagittal planes. Contrast-enhanced sequences were acquired following the IV administration of 10 cc of Gadavist. The examination is modestly degraded by motion artifact. FINDINGS: Vertebral body height and alignment are maintained throughout the thoracic spine. Normal marrow signal intensity is preserved throughout the visualized bony structures. No destructive osseous lesion is seen. A tiny hemangioma is suggested in the body of T11. The transverse and spinous processes are intact as visualized. No significant neural foraminal stenosis is seen throughout the thoracic spine. Minimal degenerative disc desiccation is observed. The disc spaces are maintained. No disc herniation is identified. The thoracic spinal cord is normal in morphology and signal intensity. The conus medullaris terminates at the level of L1. No abnormal enhancement is seen on the postcontrast images. There is a lobulated soft tissue lesion identified within the right paraspinous musculature at T3 to T5. This measures 6.1 x 1.7 x 3.6 cm. This follows fat on all sequences and is consistent with a lipoma. No enhancing lesion is seen. The paraspinous soft tissues are otherwise normal in appearance. The visualized lung parenchyma is grossly unremarkable but not well evaluated by MRI. IMPRESSION: 1. There is no disc herniation, central canal stenosis, or neural foraminal narrowing seen throughout the thoracic spine. 2. The thoracic spinal cord is normal in morphology and signal intensity. 3. No bony abnormality is seen. 4. 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 Interpretation Summary * Name: LUIS ROBB Study Date: 12/23/2017 06:39 AM BP: 187/98 mmHg * Patient Location: [facility]\S\E220\S\1 HR: 58 * : 1955 (M/d/yyyy) Gender: Male Height: 72 in * Age: 62 yrs Ethnicity: MT Weight: 218 lb * Ordering Physician: Rimma Serrano * Referring Physician: Self, Referred * Performed By: Romina Pedersen [facility] * * Reason For Study: R/O CVA * BSA: 2.2 m2 * -- Conclusions -- * 1. Normal LV size. Mild concentric LVH we. * 2. Normal LV systolic function. LVEF 55-60%. No regional wall motion abnormalities. * 3. Normal RV size and function. * 4. No significant valvular pathology. * 5. Grade 2 diastolic dysfunction * 6. Positive saline contrast study for interatrial shunt consistent with PFO. * 7. No prior studies for comparison. Procedure Details * A complete two-dimensional transthoracic echocardiogram was performed (2D, M- mode, Doppler and color flow Doppler). * A saline contrast injection was performed to assess for cardiac shunting. * The injection was performed through an intravenous line in the left arm. * The attending nurse who injected the saline contrast was NEVILLE CASTELLANO, RN. * A total of 30 cc of agitated saline was given. Left Ventricle * The left ventricle is grossly normal size. * There is mild concentric left ventricular hypertrophy. * Ejection Fraction = 55-60%. * No regional wall motion abnormalities noted. Right Ventricle * The right ventricle is grossly normal size. * The right ventricular systolic function is normal as assessed by tricuspid annular plane systolic excursion (TAPSE) (normal >1.5 cm). Atria * Borderline left atrial enlargement. * Right atrial size is normal. * Injection of contrast documented an interatrial shunt. Mitral Valve * The mitral valve is grossly normal. * There is no mitral valve stenosis. * There is trace mitral regurgitation. Tricuspid Valve * The tricuspid valve is not well visualized, but is grossly normal. * There is no tricuspid stenosis. * There is trace tricuspid regurgitation. Aortic Valve * The aortic valve opens well. * The aortic valve is trileaflet. * No hemodynamically significant valvular aortic stenosis. * There is no significant aortic regurgitation. Pulmonic Valve * The pulmonary valve is inadequately visualized, but the Doppler data is adequate for interpretation. * There is no pulmonic valvular stenosis. * Trace pulmonic valvular regurgitation. Great Vessels * The aortic root and proximal ascending aorta are normal sized. Pericardium/Pleural * There is no pericardial effusion. Great Vessels * Normal inferior vena cava size and collapsability with sniff indicates a normal right atrial pressure of 3 mmHg Left Ventricular Diastolic Function * Diastolic dysfunction, Grade II (pseudonormalization pattern). Consultations: Neurology Medication Reconciliation New Medications: Metformin Hcl (Glucophage) 500 Mg Tab 500 MG PO BID, #60 TAB 6 Refills please do not start until after 12/25/17 Aspirin (Aspirin EC Low Dose) 81 Mg Ectab 81 MG PO QAM, #90 DOSE Atorvastatin (Lipitor) 40 Mg Tab 40 MG PO QAM, #90 TAB Lidocaine (Lidocaine) 1 Patch Tdsy 1 PATCH TD HS for 30 Days, #30 PATCH Apply for 12 hours to posterior right shoulder at bedtime, then remove for 12 hours in am Lisinopril (Lisinopril) 20 Mg Tab 20 MG PO QAM for 30 Days, #30 TAB Polyethylene (Miralax) 17 Gm Pow 17 GM PO DAILY PRN for Constipation for 30 Days, #30 DOSE Tramadol HCl (Tramadol HCl) 50 Mg Tab 50 MG PO Q6H PRN for Pain for 3 Days, #12 TAB Continued Medications: Naproxen (Naprosyn) Unknown Strength Tab 1 TAB PO BID PRN for Pain, TAB Referrals At Discharge Follow up Referrals: Neurologist Referral - Within a Month with Anika Mclaughlin D.O. Discharge Exam Patient reports feeling well. His posterior right shoulder pain remains the same, about a 5/10 tightness. He denies any other new complaints. The patient denies fevers, chills, sweats, chest pain, palpitations, claudication, cough, wheezing, shortness of breath, nausea, vomiting, abdominal pain, dysuria, hematuria, urinary retention, paralysis, weakness, numbness and tingling. Constitutional: No fever, No chills, No sweats Eyes: No worsening of vision, No eye pain, No diplopia ENT: No hearing loss, No nasal symptoms, No trouble swallowing Respiratory: No cough, No wheezing, No shortness of breath Cardiovascular: No chest pain, No claudication, No palpitations Abdomen: No pain, No nausea, No vomiting Musculoskeletal: +Back pain. No muscle pain, No swelling Genitourinary - Male: No dysuria, No urinary retention, No hematuria Neurologic: No paralysis, No weakness, No numbness/tingling Integumentary: No rash, No itch, No color change General appearance: Well-developed, well-nourished, no apparent distress Head: Normocephalic, atraumatic Eyes: Normal inspection, PERRL, EOMI ENT: Normal ENT inspection, hearing grossly normal, pharynx normal Neck: Supple, no JVD, trachea midline Respiratory/Chest: Lungs clear to auscultation, normal breath sounds, no respiratory distress Cardiovascular: Regular rate & rhythm, no gallop, no murmur Abdomen/GI: Normal bowel sounds, non-tender, soft Extremities/Musculoskeletal: Normal inspection, no calf tenderness, no pedal edema Neurological/Psych: +Slight right facial droop, slightly slurred with some words. Slight right pronator drift. Alert, normal mood/affect, oriented x 3 Skin: Normal color, warm/dry, no rash Hospital Course 62 y/o male without known significant past medical history prior to arrival who presents with slurred speech and right sided weakness. The patient has not seen a PCP for routine check ups for several years. CVA--stable -Head CT negative -MRI brain shows small acute left anterior pontine infarct -MRA head, CTA neck, carotid ultrasound without significant disease -HTN improving, still within permissive range -Cardiac enzymes negative -PT/OT recommend rehab -Speech therapy: ok for regular AHA diet -Neuro consulted, agree with management -Echo with EF 55-60%, no wall motion abnormalities. Grade II diastolic dysfunction. PFO. -Lyme negative -Continue ASA, Lipitor 40 mg PO qd HTN--previously untreated -Continue lisinopril 20 mg PO qd DM II--A1c here 11.1, new diagnosis -Continue Lantus 10 units SC qam -Metformin 500 mg PO BID, continue on discharge -Insulin sliding scale -Check BSGs q ac and qhs Thoracic back pain/edema--stable -MRI thoracic spine with lipoma in right paraspinous tissue T3-T5. No disc herniation, central canal stenosis, or neural foraminal narrowing. No spinal cord or bony abnormalities. -MRI cervical spine with multilevel cervical spondylosis, greatest from C4-C5 through C6-C7. Findings do suggest right foraminal impingement. No destructive bony process, spinal cord normal in morphology. -Continue Tramadol, Celebrex, Tylenol prn, Lidoderm patch DVT prophylaxis -Enoxaparin 40 mg SC q24h Code Status -Level I, FULL RESUSCITATION STATUS Dispo -PT/OT recommend rehab -Accepted to [facility] Supervising Note Dr. Thomas I performed a history and physical examination on the patient. I reviewed above note and agree with it. I discussed discharge plan with APC and patient. During my face to face encounter with the patient, I answered all of the patient's questions. Total Time Spent: Greater than 30 minutes This includes examination of the patient, discharge planning, medication reconciliation, and communication with other providers. Discharge Instructions Please refer to the electronic Patient Visit Report (Discharge Instructions) for additional information. Additional Copies To Olimpia Dickens PA-C
[2017-12-28 15:12] VITALS: BP 142/84; PULSE 64; TEMP 37; O2SAT 96
== END 2017-12-28 16:04 | DRG 65 ==
LOC: EDBD 13:47 → C.EDB 13:53 → C.2T 17:06 → ENRESERV 17:41 → C.MS2W 12-25 15:53
PROVIDERS: ADMIT Internal Medicine; ATTEND Internal Medicine Sports Medicine
DX: I63.9 Cerebral infarction, unspecified (principal); G81.91 Hemiplegia, unspecified affecting right dominant side; R29.810 Facial weakness; R47.81 Slurred speech; R47.1 Dysarthria and anarthria; R26.89 Other abnormalities of gait and mobility; R29.702 NIHSS score 2; E11.65 Type 2 diabetes mellitus with hyperglycemia; M54.6 Pain in thoracic spine; D17.79 Benign lipomatous neoplasm of other sites; M47.812 Spondylosis without myelopathy or radiculopathy, cervical region; I10 Essential (primary) hypertension; Z51.81 Encounter for therapeutic drug level monitoring

== ENCOUNTER 2018-01-12 16:52 | Emergency (ER) | payer OTHER ==
[~2018-01-12] VITALS: Ht 182.9 cm; Wt 91.6 kg
[~2018-01-12 16:52] MED LIST: ASPEC81 PO; LDDP5 TD; LPT40 PO; LSN20 PO; METF500T PO; MRLP17 PO; NAPR-1169 PO; ULT50X PO
[2018-01-12 16:55] VITALS: Ht 182.9 cm; Wt 91.6 kg
[2018-01-12] MEDS ORDERED: LISINOPRIL 20 MG TAB PO STA (18:19)
[2018-01-12] MEDS ORDERED: LISINOPRIL 5 MG TAB ONE ×2 (18:25→18:27)
[2018-01-12] MEDS ORDERED: LISI-725 PO (18:44)
[2018-01-12] MEDS ORDERED: ASPI81TA28 PO (18:44)
[2018-01-12] MEDS ORDERED: TRAM-10 PO (18:44)
[2018-01-12] MEDS ORDERED: GLC/500 PO (18:44)
[2018-01-12] MEDS ORDERED: ATOR-24 PO (18:44)
[2018-01-12] MEDS ORDERED: CLB/200 PO (18:44)
[2018-01-12] MEDS ORDERED: METF-383 PO (18:44)
--- NOTE | 2018-01-12 18:51 | EMERGENCY ROOM VISIT NOTE ---
History Report prepared by Roger: Catalino Borrego Under the Supervision of: Dr. Ede Craig M.D. First contact with patient: 17:55 Chief Complaint: HYPERTENSION Stated Complaint: HIGH BLOOD PRESSURE READING, DR MOORE History of Present Illness The patient is a 62 year old white male with a past medical history of recent pontine stroke, diabetes and HTN who presents to the ED with a cc of improving hypertension beginning today. He was seen by his neurologist today for a follow up appointment after a surgery s/p stroke occurring two weeks ago. He was referred to the ED for further evaluation when he was found to have a blood pressure of 190/118. Negative headaches, dizziness, or visual changes. He has been taking his medications as normal. On baby aspirin, but no other blood thinners. The patient has weakness in his right side which is chronic since his stroke. Source of History: patient Onset: Today Symptom Intensity: BP of 190/118 Quality: other (hypertension) Timing: other (improving) Associated Symptoms: No headache Note: Negative: dizziness, or visual changes. Review of Systems See HPI for pertinent positives and negatives. A total of ten systems were reviewed and were otherwise negative. Past Medical & Surgical Medical Problems: (1) Diabetes (2) HTN (hypertension) (3) Stroke Family History No pertinent family history stated. Social History Smoking Status: Never Smoker Drug Use: none Marital Status: Housing Status: lives with significant other Occupation Status: employed Current/Historical Medications Scheduled Aspirin (Aspirin Ec), 81 MG PO DAILY Atorvastatin (Lipitor), 40 MG PO DAILY Celecoxib (CeleBREX), Unknown Dose PO DAILY Lisinopril (Zestril), 20 MG PO DAILY Metformin Hcl (Glucophage), 850 MG PO QAM Metformin Hcl (Glucophage), 500 MG PO QPM Scheduled PRN Tramadol (Ultram), 50 MG PO Q8H PRN for Pain Allergies Coded Allergies: No Known Allergies (Unverified , 01/12/18) Physical Exam Vital Signs Date Time Temp Pulse Resp B/P (MAP) Pulse Ox O2 Delivery O2 Flow Rate FiO2 01/12/18 18:29 68 01/12/18 18:26 65 139/89 01/12/18 18:16 67 18 145/92 98 Room Air 01/12/18 16:55 36.6 73 16 160/93 98 Room Air Physical Exam GENERAL: Awake, alert, well-appearing, NAD HENT: Normocephalic, atraumatic. EYES: Normal conjunctiva. Sclera non-icteric. Mild anisocoria left greater than right, but equally reactive. Wearing glasses. NECK: Supple. No nuchal rigidity. FROM. RESPIRATORY: CTAB, no rhonchi, wheezing, crackles CARDIAC: RRR, no MRG ABDOMEN: Soft, NTND, BS+ MSK: No chest wall TTP, no LE edema. Missing several fingers. NEURO: GCS 15, CN 2-12 intact, moves all 4s on command. 4/5 strength of the right upper and right lower extremities. SKIN: No rash or jaundice noted. Medical Decision & Procedures Medications Administered Medications (Trade) Dose Ordered Sig/Mich Route Start Time Stop Time Status Last Admin Dose Admin Lisinopril (Zestril Tab) 20 mg STK-MED ONCE .ROUTE 01/12/18 18:25 01/12/18 18:26 DC 01/12/18 18:30 20 MG Lisinopril (Zestril Tab) 10 mg STK-MED ONCE .ROUTE 01/12/18 18:27 01/12/18 18:28 DC 01/12/18 18:32 10 MG ECG Per My Interpretation Indication: other (hypertension) Rate (beats per minute): 68 Rhythm: normal sinus Findings: T-wave inversion (lead 3), other (Normal intervals. Normal axis. T- wave flattening in AVF. ) Comparison ECG Date: Dec 22, 2017 Change: no significant change ED Course 1805: The patient was evaluated in room B5. A complete history and physical exam was performed. 1840: I reevaluated the patient. Discussed results and discharge instructions: he verbalized understanding and agreement. The patient is ready for discharge. Medical Decision The patient is a 62 year old white male with a past medical history of recent pontine stroke, diabetes and HTN who presents to the ED with a cc of constant hypertension beginning today. Differential diagnosis: Etiologies such as benign hypertension, hypertensive emergency, cardiovascular pathology, pheochromocytoma, electrolyte abnormality, renal disease, endorgan damage, as well as others were entertained. Patient was seen and evaluated the bedside. Patient did have a recent pontine stroke and patient was seen in outpatient clinic for follow-up appointment. Patient was noted to have an elevated blood pressure. He was 190/110. Patient denies any headache or worsening neurologic symptoms from his baseline which include some mild dysarthria and right-sided weakness. Patient otherwise is very well-appearing. After reviewing the EMR the patient has had normal renal function. The patient and family member thought that they had an increase in their Norvasc; however, the patient was recently increased on his lisinopril dose. I did call the pharmacy in [place] and they stated he was increased from 20 mg to 30 mg. Patient did have an EKG completed which was unremarkable from his priors. Patient was deemed suitable for outpatient follow-up and treatment at this time. Patient was given strict follow-up, discharge, and return precautions. All questions were answered. Patient was deemed suitable for outpatient follow-up at this time. Patient agreed with the plan of care and was safely discharged home. Medication Reconcilliation Current Medication List: was personally reviewed by me Blood Pressure Screening Patient's blood pressure: Elevated blood pressure Blood pressure disposition: Referred to PCP Impression Primary Impression: Asymptomatic hypertension Scribe Attestation The scribe's documentation has been prepared under my direction and personally reviewed by me in its entirety. I confirm that the note above accurately reflects all work, treatment, procedures, and medical decision making performed by me. Departure Information Dispostion Home / Self-Care Referrals No Doctor, Assigned (PCP) Patient Instructions Hypertension Sd, My [facility] Additional Instructions Please return to the emergency department if you have worsening or recurrent symptoms not amenable to at-home treatment. Please call for a follow-up appointment with her primary care physician. Please take your medications as prescribed. If you have other concerns and/or complaints please feel free to also call your primary care physician's office or return the ED for further evaluation, management, and treatment. You were found to have an elevated blood pressure today (>120 sytolic or >90 diastolic). Per medicare guidelines, you need to follow up with this blood pressure screening with your Primary Care Physician (PCP). For a new PCP call [phone]. Take your medications as prescribed. Remember your dose of lisinopril was increased to 30mg daily. You have been examined and treated today on an emergency basis only. This is not a substitute for, or an effort to provide, complete comprehensive medical care. It is impossible to recognize and treat all injuries or illnesses in a single emergency department visit. It is therefore important that you follow up closely with [facility], your PCP, and/or your specialist(s). Call as soon as possible for an appointment. Thank you for your time and consideration. I look forward to speaking with you again soon. Please don't hesitate to call us if you have any questions.
[2018-01-12 18:58] VITALS: BP 154/84; PULSE 69; TEMP 36.6; O2SAT 99
== END 2018-01-12 18:59 | disposition home or self-care (01) ==
LOC: C.EDB 16:54
DX: I10 Essential (primary) hypertension (principal); E11.9 Type 2 diabetes mellitus without complications; Z79.82 Long term (current) use of aspirin; Z79.84 Long term (current) use of oral hypoglycemic drugs; Z79.899 Other long term (current) drug therapy; H57.02 Anisocoria; I69.322 Dysarthria following cerebral infarction; I69.351 Hemiplegia and hemiparesis following cerebral infarction affecting right dominant side